=== PATIENT | female | born 1930 | race Hispanic/Latino ===

== ENCOUNTER 2017-06-02 16:43 | Inpatient (IN) | payer MEDICARE ==
[2017-06-02] MEDS ORDERED: TYLENOL PO STA (17:54)
[2017-06-02] MEDS ORDERED: NACL 0.9% 500 ML 500 ML IV ONE (17:54)
[2017-06-02] MEDS ORDERED: TYLENOL PR ONE ×3 (18:05→20:27)
[2017-06-02] MEDS ORDERED: ROCEPHIN/NS 1 GM/50 ML 1 GM/50 ML BAG IV ONE (18:06)
[2017-06-02] MEDS ORDERED: TYLENOL PO ONE (18:25)
[2017-06-02 18:53] LABS: Hematocrit 39.7 % (30.3-42.9); Hemoglobin 13.3 gm/dl (10.1-14.3); Mean Corpuscular HGB Conc 34 % (30-34); Mean Corpuscular Hemoglobin 30 pg (28-32); Mean Corpuscular Volume 91 fl (79-97); Red Blood Count 4.38 M/mm3 (3.65-5.03); Red Cell Distribution Width 14.4 % (13.2-15.2); White Blood Count 8.2 K/mm3 (4.5-11.0)
[2017-06-02 18:55] LABS: Platelet Count 188 K/mm3 (140-440)
--- NOTE | 2017-06-02 18:55 | Emergency Department Report ---
ED Altered Mental Status HPI - General Chief Complaint: Fever Stated Complaint: INFECTION Time Seen by Provider: 06/02/17 18:04 Source: family, EMS Mode of arrival: Stretcher Limitations: Language Barrier, Altered Mental Status - History of Present Illness Initial Comments: 87-year-old female with a past medical history dementia, hypothyroidism, and atrial fibrillation presents to the hospital for altered mental status and UTI. Patient has had decreased by mouth intake and depressed mental status for the last several days. She was seen at [facility] yesterday and diagnosed with a UTI and prescribed Macrobid. They were unable to fill the medication because the pharmacy was closed over the holiday weekend. Today patient was found down on the floor by her daughter and nonverbal. Patient makes eye contact, smiles, and follows commands but does not speak. This is an acute change from her baseline in which she speaks and ambulates with a walker. No fever reported at home. Patient is not on anticoagulants for Coumadin due to a fall risk but she does take an aspirin daily. No pain reported. Patient was able to stand with assistance of EMS at the scene. received 1 L normal saline prior to arrival. PMD: Dr. moore partners - Related Data Allergies Allergy/AdvReac Type Severity Reaction Status Date / Time No Known Allergies Allergy Unverified 06/02/17 17:54 ED Review of Systems ROS: Stated complaint: INFECTION Other details as noted in HPI Comment: Unobtainable due to pts medical conditions (ams/dementia) ED Past Medical Hx - Past Medical History Hx Dementia: Yes Additional medical history: hypothyroid, Afib - Surgical History Additional Surgical History: hysterectomy, R foot - Social History Smoking Status: Never Smoker Substance Use Type: None ED Physical Exam - General Limitations: Language Barrier, Altered Mental Status - Other Other exam information: General: No limitations Head exam: Atraumatic no scalp hematoma, normocephalic Eyes exam: Normal appearance ENT: Moist mucous membrane, normal oropharynx Neck exam: Normal inspection, full range of motion, no meningismus, nontender midline Respiratory exam: Clear to auscultation bilateral, no wheezes, rales, crackles Cardiovascular: Normal rate and rhythm, normal heart sounds Abdomen: Soft, nondistended, and nontender, with normal bowel sounds, no rebound, or guarding Extremity: Full range of motion normal inspection no deformity, no pain with movement of extremities. Back: Normal Inspection, full range of motion, no tenderness Neurologic: Alert, nonverbal, cranial nerves intact, equal hand weather forecaster, equal foot dorsiflexion, equal smile Psychiatric: normal affect, normal mood Skin: Warm, dry, intact ED Course Vital Signs 06/02/17 06/02/17 06/02/17 17:48 17:55 18:00 Temperature 100.1 F H Pulse Rate 96 H Respiratory 20 Rate Blood Pressure 118/53 118/53 O2 Sat by Pulse 91 93 96 Oximetry 06/02/17 06/02/17 06/02/17 18:18 18:30 19:02 Temperature Pulse Rate 100 H Respiratory Rate Blood Pressure 105/39 125/54 118/53 O2 Sat by Pulse 94 95 Oximetry 06/02/17 06/02/17 06/02/17 19:15 19:30 19:45 Temperature Pulse Rate 98 H 93 H 94 H Respiratory 32 H 28 H 25 H Rate Blood Pressure 99/52 90/40 87/41 O2 Sat by Pulse 95 96 96 Oximetry 06/02/17 06/02/17 06/02/17 20:00 20:15 20:25 Temperature 101.7 F H Pulse Rate 88 96 H Respiratory 29 H 30 H Rate Blood Pressure 90/47 82/49 O2 Sat by Pulse 98 98 Oximetry 06/02/17 06/02/17 20:30 21:15 Temperature Pulse Rate 88 Respiratory 34 H 28 H Rate Blood Pressure 91/44 O2 Sat by Pulse 96 97 Oximetry - Reevaluation(s) Reevaluation #1: 06/02/17 19:54 Systolic blood pressure in the 80s as per nurse. 500 mL normal saline bolus in progress. Additional 1 L ordered. Patient received Rocephin for presumed UTI. UA results still pending Reevaluation #2: 06/02/17 23:16 Despite 3.5 L of normal saline patient may hypotensive. consent obtained for central line. Right femoral line placed. - Central Line Placement Right Femoral Consent Obtained: written consent Time Out Performed: Yes Patient Placed on Monitor/Pulse Ox: Yes Prep: mask, gown, gloves Central Line Prep: Chlorhexidine scrub, sterile drapes applied Amount of Anesthesia Used (mls): 5 Ultrasound Used for Placement: Yes Central Line Lumen Inserted: triple Bloods Obtained for Lab: Yes Central Line Position: good blood return, sutured in place with nyl Dressing Applied: Tegaderm Patient Tolerated Procedure: well Complications: arterial puncture/cannula (pressure held, no hematoma or continued bleeding) - Lab Data Result diagrams: 06/02/17 18:11 06/02/17 18:11 Lab Results 06/02/17 06/02/17 06/02/17 Range/Units 18:11 18:11 18:11 WBC 8.2 (4.5-11.0) K/mm3 RBC 4.38 (3.65-5.03) M/mm3 Hgb 13.3 (10.1-14.3) gm/dl Hct 39.7 (30.3-42.9) % MCV 91 (79-97) fl MCH 30 (28-32) pg MCHC 34 (30-34) % RDW 14.4 (13.2-15.2) % Plt Count 188 (140-440) K/mm3 Add Manual Diff Complete Total Counted 100 Seg Neutrophils % Load Tallier Seg Neuts % (Manual) 44.0 (40.0-70.0) % Band Neutrophils % 47.0 % Lymphocytes % (Manual) 5.0 L (13.4-35.0) % Reactive Lymphs % (Man) 0 % Monocytes % (Manual) 1.0 (0.0-7.3) % Eosinophils % (Manual) 0 (0.0-4.3) % Basophils % (Manual) 0 (0.0-1.8) % Metamyelocytes % 3.0 % Myelocytes % 0 % Promyelocytes % 0 % Blast Cells % 0 % Nucleated RBC % Not Reportable Seg Neutrophils # Man 3.6 (1.8-7.7) K/mm3 Band Neutrophils # 3.9 K/mm3 Lymphocytes # (Manual) 0.4 L (1.2-5.4) K/mm3 Abs React Lymphs (Man) 0.0 K/mm3 Monocytes # (Manual) 0.1 (0.0-0.8) K/mm3 Eosinophils # (Manual) 0.0 (0.0-0.4) K/mm3 Basophils # (Manual) 0.0 (0.0-0.1) K/mm3 Metamyelocytes # 0.2 K/mm3 Myelocytes # 0.0 K/mm3 Promyelocytes # 0.0 K/mm3 Blast Cells # 0.0 K/mm3 WBC Morphology Not Reportable Hypersegmented Neuts Not Reportable Hyposegmented Neuts Not Reportable Hypogranular Neuts Not Reportable Smudge Cells Not Reportable Toxic Granulation Not Reportable Toxic Vacuolation Not Reportable Dohle Bodies Not Reportable Pelger-Huet Anomaly Not Reportable Nate Rods Not Reportable Platelet Estimate Appears normal Clumped Platelets Not Reportable Plt Clumps, EDTA Not Reportable Large Platelets Not Reportable Giant Platelets Not Reportable Platelet Satelliting Not Reportable Plt Morphology Comment Not Reportable RBC Morphology Not Reportable Dimorphic RBCs Not Reportable Polychromasia Not Reportable Hypochromasia Not Reportable Poikilocytosis Not Reportable Anisocytosis Not Reportable Microcytosis Not Reportable Macrocytosis Not Reportable Spherocytes Not Reportable Pappenheimer Bodies Not Reportable Sickle Cells Not Reportable Target Cells Not Reportable Tear Drop Cells Not Reportable Ovalocytes Few Helmet Cells Not Reportable Vazquez-[place] Bodies Not Reportable [place] Rings Not Reportable [place] Cells Not Reportable Bite Cells Not Reportable Crenated Cell Not Reportable Elliptocytes Not Reportable Acanthocytes (Spur) Not Reportable Rouleaux Not Reportable Hemoglobin C Crystals Not Reportable Schistocytes Not Reportable Malaria parasites Not Reportable Néstor Bodies Not Reportable Hem Pathologist Commnt No PT 16.8 H (12.2-14.9) Sec. INR 1.30 H (0.87-1.13) APTT 30.8 (24.2-36.6) Sec. VBG pH (7.320-7.420) Sodium 137 (137-145) mmol/L Potassium 4.0 (3.6-5.0) mmol/L Chloride 95.7 L (98-107) mmol/L Carbon Dioxide 19 L (22-30) mmol/L Anion Gap 26 mmol/L BUN 28 H (7-17) mg/dL Creatinine 1.6 H (0.7-1.2) mg/dL Estimated GFR 30 ml/min BUN/Creatinine Ratio 18 % Glucose 113 H (65-100) mg/dL Lactic Acid (0.7-2.0) mmol/L Calcium 9.2 (8.4-10.2) mg/dL Total Bilirubin 1.40 H (0.1-1.2) mg/dL AST 25 (5-40) units/L ALT 16 (7-56) units/L Alkaline Phosphatase 159 H (35-129) units/L Ammonia (25-60) umol/L Total Creatine Kinase (30-135) units/L CK-MB (CK-2) (0.0-4.0) ng/mL CK-MB (CK-2) Rel Index (0-4) Total Protein 6.1 L (6.3-8.2) g/dL Albumin 3.5 L (3.9-5) g/dL Albumin/Globulin Ratio 1.3 % TSH (0.270-4.200) mlU/mL Free T4 (0.76-1.46) ng/dL Urine Color (Yellow) Urine Turbidity (Clear) Urine pH (5.0-7.0) Ur Specific Reform (1.003-1.030) Urine Protein (Negative) mg/dL Urine Glucose (UA) (Negative) mg/dL Urine Ketones (Negative) mg/dL Urine Blood (Negative) Urine Nitrite (Negative) Urine Bilirubin (Negative) Urine Urobilinogen (<2.0) mg/dL Ur Leukocyte Esterase (Negative) Urine WBC (Auto) (0.0-6.0) /HPF Urine RBC (Auto) (0.0-6.0) /HPF U Epithel Cells (Auto) (0-13.0) /HPF Urine Bacteria (Auto) (Negative) /HPF Urine WBC Clumps /HPF Calcium Oxalate Crystal Urine Mucus /HPF 06/02/17 06/02/17 06/02/17 Range/Units 18:11 18:11 18:11 WBC (4.5-11.0) K/mm3 RBC (3.65-5.03) M/mm3 Hgb (10.1-14.3) gm/dl Hct (30.3-42.9) % MCV (79-97) fl MCH (28-32) pg MCHC (30-34) % RDW (13.2-15.2) % Plt Count (140-440) K/mm3 Add Manual Diff Total Counted Seg Neutrophils % Seg Neuts % (Manual) (40.0-70.0) % Band Neutrophils % % Lymphocytes % (Manual) (13.4-35.0) % Reactive Lymphs % (Man) % Monocytes % (Manual) (0.0-7.3) % Eosinophils % (Manual) (0.0-4.3) % Basophils % (Manual) (0.0-1.8) % Metamyelocytes % % Myelocytes % % Promyelocytes % % Blast Cells % % Nucleated RBC % Seg Neutrophils # Man (1.8-7.7) K/mm3 Band Neutrophils # K/mm3 Lymphocytes # (Manual) (1.2-5.4) K/mm3 Abs React Lymphs (Man) K/mm3 Monocytes # (Manual) (0.0-0.8) K/mm3 Eosinophils # (Manual) (0.0-0.4) K/mm3 Basophils # (Manual) (0.0-0.1) K/mm3 Metamyelocytes # K/mm3 Myelocytes # K/mm3 Promyelocytes # K/mm3 Blast Cells # K/mm3 WBC Morphology Hypersegmented Neuts Hyposegmented Neuts Hypogranular Neuts Smudge Cells Toxic Granulation Toxic Vacuolation Dohle Bodies Pelger-Huet Anomaly Nate Rods Platelet Estimate Clumped Platelets Plt Clumps, EDTA Large Platelets Giant Platelets Platelet Satelliting Plt Morphology Comment RBC Morphology Dimorphic RBCs Polychromasia Hypochromasia Poikilocytosis Anisocytosis Microcytosis Macrocytosis Spherocytes Pappenheimer Bodies Sickle Cells Target Cells Tear Drop Cells Ovalocytes Helmet Cells Vazquez-[place] Bodies [place] Rings [place] Cells Bite Cells Crenated Cell Elliptocytes Acanthocytes (Spur) Rouleaux Hemoglobin C Crystals Schistocytes Malaria parasites Néstor Bodies Hem Pathologist Commnt PT (12.2-14.9) Sec. INR (0.87-1.13) APTT (24.2-36.6) Sec. VBG pH 7.331 (7.320-7.420) Sodium (137-145) mmol/L Potassium (3.6-5.0) mmol/L Chloride (98-107) mmol/L Carbon Dioxide (22-30) mmol/L Anion Gap mmol/L BUN (7-17) mg/dL Creatinine (0.7-1.2) mg/dL Estimated GFR ml/min BUN/Creatinine Ratio % Glucose (65-100) mg/dL Lactic Acid 5.70 H* (0.7-2.0) mmol/L Calcium (8.4-10.2) mg/dL Total Bilirubin (0.1-1.2) mg/dL AST (5-40) units/L ALT (7-56) units/L Alkaline Phosphatase (35-129) units/L Ammonia < 10.0 L (25-60) umol/L Total Creatine Kinase (30-135) units/L CK-MB (CK-2) (0.0-4.0) ng/mL CK-MB (CK-2) Rel Index (0-4) Total Protein (6.3-8.2) g/dL Albumin (3.9-5) g/dL Albumin/Globulin Ratio % TSH (0.270-4.200) mlU/mL Free T4 (0.76-1.46) ng/dL Urine Color (Yellow) Urine Turbidity (Clear) Urine pH (5.0-7.0) Ur Specific Reform (1.003-1.030) Urine Protein (Negative) mg/dL Urine Glucose (UA) (Negative) mg/dL Urine Ketones (Negative) mg/dL Urine Blood (Negative) Urine Nitrite (Negative) Urine Bilirubin (Negative) Urine Urobilinogen (<2.0) mg/dL Ur Leukocyte Esterase (Negative) Urine WBC (Auto) (0.0-6.0) /HPF Urine RBC (Auto) (0.0-6.0) /HPF U Epithel Cells (Auto) (0-13.0) /HPF Urine Bacteria (Auto) (Negative) /HPF Urine WBC Clumps /HPF Calcium Oxalate Crystal Urine Mucus /HPF 06/02/17 06/02/17 06/02/17 Range/Units 18:11 18:11 19:19 WBC (4.5-11.0) K/mm3 RBC (3.65-5.03) M/mm3 Hgb (10.1-14.3) gm/dl Hct (30.3-42.9) % MCV (79-97) fl MCH (28-32) pg MCHC (30-34) % RDW (13.2-15.2) % Plt Count (140-440) K/mm3 Add Manual Diff Total Counted Seg Neutrophils % Seg Neuts % (Manual) (40.0-70.0) % Band Neutrophils % % Lymphocytes % (Manual) (13.4-35.0) % Reactive Lymphs % (Man) % Monocytes % (Manual) (0.0-7.3) % Eosinophils % (Manual) (0.0-4.3) % Basophils % (Manual) (0.0-1.8) % Metamyelocytes % % Myelocytes % % Promyelocytes % % Blast Cells % % Nucleated RBC % Seg Neutrophils # Man (1.8-7.7) K/mm3 Band Neutrophils # K/mm3 Lymphocytes # (Manual) (1.2-5.4) K/mm3 Abs React Lymphs (Man) K/mm3 Monocytes # (Manual) (0.0-0.8) K/mm3 Eosinophils # (Manual) (0.0-0.4) K/mm3 Basophils # (Manual) (0.0-0.1) K/mm3 Metamyelocytes # K/mm3 Myelocytes # K/mm3 Promyelocytes # K/mm3 Blast Cells # K/mm3 WBC Morphology Hypersegmented Neuts Hyposegmented Neuts Hypogranular Neuts Smudge Cells Toxic Granulation Toxic Vacuolation Dohle Bodies Pelger-Huet Anomaly Nate Rods Platelet Estimate Clumped Platelets Plt Clumps, EDTA Large Platelets Giant Platelets Platelet Satelliting Plt Morphology Comment RBC Morphology Dimorphic RBCs Polychromasia Hypochromasia Poikilocytosis Anisocytosis Microcytosis Macrocytosis Spherocytes Pappenheimer Bodies Sickle Cells Target Cells Tear Drop Cells Ovalocytes Helmet Cells Vazquez-[place] Bodies [place] Rings Maira Cells Bite Cells Crenated Cell Elliptocytes Acanthocytes (Spur) Rouleaux Hemoglobin C Crystals Schistocytes Malaria parasites Néstor Bodies Hem Pathologist Commnt PT (12.2-14.9) Sec. INR (0.87-1.13) APTT (24.2-36.6) Sec. VBG pH (7.320-7.420) Sodium (137-145) mmol/L Potassium (3.6-5.0) mmol/L Chloride (98-107) mmol/L Carbon Dioxide (22-30) mmol/L Anion Gap mmol/L BUN (7-17) mg/dL Creatinine (0.7-1.2) mg/dL Estimated GFR ml/min BUN/Creatinine Ratio % Glucose (65-100) mg/dL Lactic Acid (0.7-2.0) mmol/L Calcium (8.4-10.2) mg/dL Total Bilirubin (0.1-1.2) mg/dL AST (5-40) units/L ALT (7-56) units/L Alkaline Phosphatase (35-129) units/L Ammonia (25-60) umol/L Total Creatine Kinase 463 H (30-135) units/L CK-MB (CK-2) 7.0 H (0.0-4.0) ng/mL CK-MB (CK-2) Rel Index 1.5 (0-4) Total Protein (6.3-8.2) g/dL Albumin (3.9-5) g/dL Albumin/Globulin Ratio % TSH 0.931 (0.270-4.200) mlU/mL Free T4 1.30 (0.76-1.46) ng/dL Urine Color Yellow (Yellow) Urine Turbidity Clear (Clear) Urine pH 5.0 (5.0-7.0) Ur Specific Reform 1.014 (1.003-1.030) Urine Protein 30 mg/dl (Negative) mg/dL Urine Glucose (UA) Neg (Negative) mg/dL Urine Ketones Neg (Negative) mg/dL Urine Blood Lg (Negative) Urine Nitrite Pos (Negative) Urine Bilirubin Neg (Negative) Urine Urobilinogen < 2.0 (<2.0) mg/dL Ur Leukocyte Esterase Lg (Negative) Urine WBC (Auto) > 182.0 H (0.0-6.0) /HPF Urine RBC (Auto) 27.0 (0.0-6.0) /HPF U Epithel Cells (Auto) 6.0 (0-13.0) /HPF Urine Bacteria (Auto) 3+ (Negative) /HPF Urine WBC Clumps 3+ /HPF Calcium Oxalate Crystal Few Urine Mucus 3+ /HPF 06/02/17 Range/Units 20:44 WBC (4.5-11.0) K/mm3 RBC (3.65-5.03) M/mm3 Hgb (10.1-14.3) gm/dl Hct (30.3-42.9) % MCV (79-97) fl MCH (28-32) pg MCHC (30-34) % RDW (13.2-15.2) % Plt Count (140-440) K/mm3 Add Manual Diff Total Counted Seg Neutrophils % Seg Neuts % (Manual) (40.0-70.0) % Band Neutrophils % % Lymphocytes % (Manual) (13.4-35.0) % Reactive Lymphs % (Man) % Monocytes % (Manual) (0.0-7.3) % Eosinophils % (Manual) (0.0-4.3) % Basophils % (Manual) (0.0-1.8) % Metamyelocytes % % Myelocytes % % Promyelocytes % % Blast Cells % % Nucleated RBC % Seg Neutrophils # Man (1.8-7.7) K/mm3 Band Neutrophils # K/mm3 Lymphocytes # (Manual) (1.2-5.4) K/mm3 Abs React Lymphs (Man) K/mm3 Monocytes # (Manual) (0.0-0.8) K/mm3 Eosinophils # (Manual) (0.0-0.4) K/mm3 Basophils # (Manual) (0.0-0.1) K/mm3 Metamyelocytes # K/mm3 Myelocytes # K/mm3 Promyelocytes # K/mm3 Blast Cells # K/mm3 WBC Morphology Hypersegmented Neuts Hyposegmented Neuts Hypogranular Neuts Smudge Cells Toxic Granulation Toxic Vacuolation Dohle Bodies Pelger-Huet Anomaly Nate Rods Platelet Estimate Clumped Platelets Plt Clumps, EDTA Large Platelets Giant Platelets Platelet Satelliting Plt Morphology Comment RBC Morphology Dimorphic RBCs Polychromasia Hypochromasia Poikilocytosis Anisocytosis Microcytosis Macrocytosis Spherocytes Pappenheimer Bodies Sickle Cells Target Cells Tear Drop Cells Ovalocytes Helmet Cells Vazquez-[place] Bodies [place] Rings Maira Cells Bite Cells Crenated Cell Elliptocytes Acanthocytes (Spur) Rouleaux Hemoglobin C Crystals Schistocytes Malaria parasites Néstor Bodies Hem Pathologist Commnt PT (12.2-14.9) Sec. INR (0.87-1.13) APTT (24.2-36.6) Sec. VBG pH (7.320-7.420) Sodium (137-145) mmol/L Potassium (3.6-5.0) mmol/L Chloride (98-107) mmol/L Carbon Dioxide (22-30) mmol/L Anion Gap mmol/L BUN (7-17) mg/dL Creatinine (0.7-1.2) mg/dL Estimated GFR ml/min BUN/Creatinine Ratio % Glucose (65-100) mg/dL Lactic Acid 5.10 H* (0.7-2.0) mmol/L Calcium (8.4-10.2) mg/dL Total Bilirubin (0.1-1.2) mg/dL AST (5-40) units/L ALT (7-56) units/L Alkaline Phosphatase (35-129) units/L Ammonia (25-60) umol/L Total Creatine Kinase (30-135) units/L CK-MB (CK-2) (0.0-4.0) ng/mL CK-MB (CK-2) Rel Index (0-4) Total Protein (6.3-8.2) g/dL Albumin (3.9-5) g/dL Albumin/Globulin Ratio % TSH (0.270-4.200) mlU/mL Free T4 (0.76-1.46) ng/dL Urine Color (Yellow) Urine Turbidity (Clear) Urine pH (5.0-7.0) Ur Specific Reform (1.003-1.030) Urine Protein (Negative) mg/dL Urine Glucose (UA) (Negative) mg/dL Urine Ketones (Negative) mg/dL Urine Blood (Negative) Urine Nitrite (Negative) Urine Bilirubin (Negative) Urine Urobilinogen (<2.0) mg/dL Ur Leukocyte Esterase (Negative) Urine WBC (Auto) (0.0-6.0) /HPF Urine RBC (Auto) (0.0-6.0) /HPF U Epithel Cells (Auto) (0-13.0) /HPF Urine Bacteria (Auto) (Negative) /HPF Urine WBC Clumps /HPF Calcium Oxalate Crystal Urine Mucus /HPF - Radiology Data Radiology results: report reviewed, image reviewed read by radiologist ct head: naf ct cervical spine: degenerative disc changes c4-c7 no fracture read by me: cxr portable: Poor inspiration, no acute findings 1 view pelvis x-ray: No acute findings - Medical Decision Making Patient present admission to the ICU for septic shock related to UTI. Central line placed on Levophed initiated in the ED. Patient received Rocephin and Levaquin. Cultures pending - Differential Diagnosis uti, sepsis, ich, stroke, fracture Critical Care Time: No Critical care attestation.: If time is entered above; I have spent that time in minutes in the direct care of this critically ill patient, excluding procedure time. ED Disposition Clinical Impression: UTI (urinary tract infection), Altered mental status, Dementia, Renal insufficiency, Septic shock, ARF (acute renal failure), Lactic acidosis, Encephalopathy Disposition: OP ADMIT IP TO THIS HOSP Is pt being admited?: Yes Condition: Stable Time of Disposition: 20:22 (Dr Mehta (pt to be seen by Dr Briceño))
[2017-06-02] MEDS ORDERED: cefTRIAXone 1 GM in NACL 0.9% 20 ML IV ONE (19:00)
[2017-06-02 19:05] LABS: INR 1.3 (0.87-1.13)
[2017-06-02 19:06] LABS: Partial Thromboplastin Time 30.8 Sec. (24.2-36.6)
[2017-06-02 19:11] LABS: Albumin 3.5 g/dL (3.9-5); Albumin/Globulin Ratio 1.3 %; Bilirubin,Total 1.4 mg/dL (0.1-1.2); Calcium 9.2 mg/dL (8.4-10.2); Chloride 95.7 mmol/L (98-107); Total Protein 6.1 g/dL (6.3-8.2)
--- NOTE | 2017-06-02 19:16 | Cat Scan Report ---
FINAL REPORT EXAM: CT HEAD/BRAIN WO CON HISTORY: AMS TECHNIQUE: Standard unenhanced CT of the head at 5.0 millimeter axial increments. PRIORS: None. FINDINGS: The ventricular system is normal in size and configuration. There is moderate cerebral and central atrophy noted. There is no evidence for mass lesion, mass effect, midline shift, acute intracranial hemorrhage, or acute ischemia/ infarction. No evidence for acute skull fracture is seen. No abnormality in the overlying scalp soft tissues is seen. Visualized paranasal sinuses are clear. IMPRESSION: No acute intracranial process noted. Central and cerebral atrophy noted.
--- NOTE | 2017-06-02 19:23 | Cat Scan Report ---
FINAL REPORT EXAM: CT CERVICAL SPINE WO CON HISTORY: AMS, found on floor TECHNIQUE: Standard CT cervical spine obtained at 2.5 millimeter axial increments. Coronal and sagittal reconstruction was also performed. PRIORS: None. FINDINGS: The vertebral bodies are intact. There is no evidence for acute fracture. There is no evidence for paravertebral soft tissue swelling. Alignment is maintained. There is degenerative disc narrowing at C4 through C7 with spurring anteriorly and posteriorly at those levels. IMPRESSION: No acute abnormality of the cervical spine. Degenerative disc changes from C4 through C7.
[2017-06-02 19:50] LABS: Bacteria,Urine 3+ /HPF (Negative); Bilirubin,Urine NEG (Negative); Blood,Urine LG (Negative); Ketones,Urine NEG (Negative); Leukocyte Esterase,Urine LG (Negative); Mucus,Urine 3+ /HPF; Nitrite,Urine POS (Negative); Urobilinogen,Urine < 2.0 mg/dL (<2.0)
[2017-06-02 19:53] LABS: WBC,Urine > 182.0 /HPF (0.0-6.0)
[2017-06-02] MEDS ORDERED: NACL 0.9% 1000 ML 1,000 ML IV ONE ×2 (19:53→20:24)
--- NOTE | 2017-06-02 19:55 | XRay Report ---
FINAL REPORT EXAM: XR PELVIS 1-2V HISTORY: fall with pelvic pain TECHNIQUE: AP view of the pelvis PRIORS: None FINDINGS: No evidence for acute fracture or dislocation is seen. There is moderate medial joint compartment narrowing in both hip joints.. Sacroiliac joints are normal. The soft tissues are unremarkable. Bony mineralization is mildly osteopenic. IMPRESSION: No acute soft tissue or bony abnormality noted in pelvis.
[2017-06-02 20:10] LABS: Basophils % (Manual) 0 % (0.0-1.8); Blastocytes % (Manual) 0 %; Diff Status Complete; Eosinophils % (Manual) 0 % (0.0-4.3); Ovalocytes Few
[2017-06-02] MEDS ORDERED: LEVAQUIN 750MG/150ML 750 MG/150 ML BAG IV ONE (20:44)
[2017-06-02] MEDS ORDERED: NACL 0.9% 1000 ML IV ONE (21:29)
[2017-06-02] MEDS ORDERED: VANCOMYCIN VIAL IV ONE (21:29)
[2017-06-02] MEDS ORDERED: TYLENOL PO PRN (21:29)
[2017-06-02] MEDS ORDERED: PROVENTIL IH PRN (21:29)
[2017-06-02] MEDS ORDERED: ZOFRAN IV PRN (21:29)
--- NOTE | 2017-06-02 21:34 | XRay Report ---
FINAL REPORT EXAM: XR CHEST 1V AP HISTORY: possible Sepsis TECHNIQUE: AP portable view of the chest PRIORS: None. FINDINGS: Lines, tubes, and devices: N/A Lungs and pleura: Trachea is normal in position. Lungs are clear of infiltrate, pleural effusion, vascular congestion, or pneumothorax. Cardiomediastinal silhouette: Heart is enlarged with a left ventricular configuration. Other: Bony structures are osteopenic. IMPRESSION: No acute cardiopulmonary process seen. Cardiomegaly.
--- NOTE | 2017-06-02 21:48 | History and Physical Report ---
History of Present Illness Chief complaint: Fever, Confusion History of present illness: 87 YO Female with Atrial Fib, Debility(Fall Risk), Hypothyroidism, Dementia presents to ED for evaluation. Pt unable to provide history due to confusion, and lethargy. Pt daughter at bedside and provides history. As per daughter, pt has experienced confusion and fever over the past 4 days with worsening symptoms over the past 2 days. Pt seen at [facility] on day prior to admission to [facility], and was found to have UTI and was discharged with oral antibiotics. They were unable to fill the medication because the pharmacy was closed over the holiday weekend. Pt weakness and confusion has gotten progressively worse overnight. The patient was found down on the floor by her daughter today. No signs of trauma. EMS notified and patient transported to [facility] for evaluation. Pt seen and evaluated in ED and found to have UTI complicated by Septic Shock. Pt systolic blood pressure in in the 70's after resuscitation with 5 liters of IV fluid. Pt confused but is able to protect her airway. No reports of CP, Palpitations, NVD, Syncope, BRBPR, Trauma, Vertigo, unintentional weight loss, night sweats, leg swelling, calf pain, prolonged immobililty/travel, individual/family history of DVT/PE, hemoptysis, productive cough, or recent ill contacts. Past History Past Medical History: atrial fib, hypothyroidism, other (Dementia) Past Surgical History: No surgical history, Other (reviewed) Social history: , lives with family. denies: smoking, alcohol abuse, prescription drug abuse Family history: no significant family history, other (reviewed) Medications and Allergies Allergies Allergy/AdvReac Type Severity Reaction Status Date / Time No Known Allergies Allergy Unverified 06/02/17 17:54 Active Meds: Active Medications Acetaminophen (Tylenol) 650 mg PO Q4H PRN PRN Reason: Pain MILD(1-3)/Fever >100.5/JOHNSON Albuterol (Proventil) 2.5 mg IH Q4HRT PRN PRN Reason: Shortness Of Breath Levofloxacin/Dextrose (Levaquin 750mg/150ml) 750 mg in 150 mls @ 100 mls/hr IV ONCE ONE Stop: 06/02/17 22:13 Last Admin: 06/02/17 20:58 Dose: 100 mls/hr Ceftriaxone Sodium 2 gm/ (Sodium Chloride) 20 mls @ 20 mls/10 min IV Q24HR [facility] Vancomycin HCl 1,500 mg/ (Sodium Chloride) 515 mls @ 333.333 mls/hr IV ONCE.ED ONE Stop: 06/02/17 23:32 Ondansetron HCl (Zofran) 4 mg IV Q8H PRN PRN Reason: N/V unrelieved by Reglan Vancomycin HCl (Vancomycin Pharmacy To Dose) 1 each IV PKCONSULT GOGO PRN Reason: Protocol Review of Systems ROS unobtainable: due to mental status Exam - Constitutional Vitals: Temp Pulse Resp BP Pulse Ox 101.7 F H 88 28 H 91/44 97 06/02/17 20:25 06/02/17 20:30 06/02/17 21:15 06/02/17 20:30 06/02/17 21:15 General appearance: Present: severe distress - EENT Eyes: Present: PERRL ENT: hearing intact, clear oral mucosa - Neck Neck: Present: supple - Respiratory Respiratory effort: normal, other (tachypnea) Respiratory: bilateral: diminished - Cardiovascular Rhythm: regular (tachycardia) Heart Sounds: Absent: systolic murmur, diastolic murmur - Extremities Extremities: pulses symmetrical, No edema Peripheral Pulses: abnormal (Capillary Refill: 4 seconds) - Abdominal General gastrointestinal: Present: soft, non-tender, non-distended, normal bowel sounds Female genitourinary: Present: normal - Integumentary Integumentary: Present: clear, dry, pale, decreased turgor - Musculoskeletal Musculoskeletal: generalized weakness - Psychiatric Psychiatric: no intact judgment & insight, no memory intact - Neurologic Neurologic: CNII-XII intact, no gait normal Results - Labs CBC & Chem 7: 06/02/17 18:11 06/02/17 18:11 Labs: Abnormal lab results 06/02/17 06/02/17 06/02/17 Range/Units 18:11 18:11 18:11 Lymphocytes % (Manual) 5.0 L (13.4-35.0) % Lymphocytes # (Manual) 0.4 L (1.2-5.4) K/mm3 PT 16.8 H (12.2-14.9) Sec. INR 1.30 H (0.87-1.13) Chloride 95.7 L (98-107) mmol/L Carbon Dioxide 19 L (22-30) mmol/L BUN 28 H (7-17) mg/dL Creatinine 1.6 H (0.7-1.2) mg/dL Glucose 113 H (65-100) mg/dL Lactic Acid (0.7-2.0) mmol/L Total Bilirubin 1.40 H (0.1-1.2) mg/dL Alkaline Phosphatase 159 H (35-129) units/L Ammonia (25-60) umol/L Total Creatine Kinase (30-135) units/L CK-MB (CK-2) (0.0-4.0) ng/mL Total Protein 6.1 L (6.3-8.2) g/dL Albumin 3.5 L (3.9-5) g/dL Urine WBC (Auto) (0.0-6.0) /HPF 06/02/17 06/02/17 06/02/17 Range/Units 18:11 18:11 18:11 Lymphocytes % (Manual) (13.4-35.0) % Lymphocytes # (Manual) (1.2-5.4) K/mm3 PT (12.2-14.9) Sec. INR (0.87-1.13) Chloride (98-107) mmol/L Carbon Dioxide (22-30) mmol/L BUN (7-17) mg/dL Creatinine (0.7-1.2) mg/dL Glucose (65-100) mg/dL Lactic Acid 5.70 H* (0.7-2.0) mmol/L Total Bilirubin (0.1-1.2) mg/dL Alkaline Phosphatase (35-129) units/L Ammonia < 10.0 L (25-60) umol/L Total Creatine Kinase 463 H (30-135) units/L CK-MB (CK-2) 7.0 H (0.0-4.0) ng/mL Total Protein (6.3-8.2) g/dL Albumin (3.9-5) g/dL Urine WBC (Auto) (0.0-6.0) /HPF 06/02/17 06/02/17 Range/Units 19:19 20:44 Lymphocytes % (Manual) (13.4-35.0) % Lymphocytes # (Manual) (1.2-5.4) K/mm3 PT (12.2-14.9) Sec. INR (0.87-1.13) Chloride (98-107) mmol/L Carbon Dioxide (22-30) mmol/L BUN (7-17) mg/dL Creatinine (0.7-1.2) mg/dL Glucose (65-100) mg/dL Lactic Acid 5.10 H* (0.7-2.0) mmol/L Total Bilirubin (0.1-1.2) mg/dL Alkaline Phosphatase (35-129) units/L Ammonia (25-60) umol/L Total Creatine Kinase (30-135) units/L CK-MB (CK-2) (0.0-4.0) ng/mL Total Protein (6.3-8.2) g/dL Albumin (3.9-5) g/dL Urine WBC (Auto) > 182.0 H (0.0-6.0) /HPF Assessment and Plan - Patient Problems (1) Sepsis Current Visit: Yes Status: Acute Qualifiers: Sepsis type: sepsis due to unspecified organism Qualified Code(s): A41.9 - Sepsis, unspecified organism Plan to address problem: Sepsis Protocol: IVF, IV abx, serial lactic acid level, urinalysis and culture, blood cultured, IV pressor support as clinically indicated to maintain MAP above or equal to 60, monitor uop q shift, The high probability of a clinically significant, sudden or life threatening deterioration of the [Cardiac, renal, neurologic] system(s) required my full and direct attention, intervention and personal management. The aggregate critical care time was [65] minutes. This time is in addition to time spent performing reported procedures but includes the following: [x] Data Review and interpretation [x] Patient assessment and monitoring of vital signs [x] Documentation [x] Medication orders and management (2) ARF (acute renal failure) Current Visit: Yes Status: Acute Plan to address problem: IVF resuscitation therapy, monitor uop q shift, urine electrolytes, treat sepsis. (3) Encephalopathy Current Visit: Yes Status: Acute Plan to address problem: Toxic Encephalopathy: Treat UTI and Sepsis, IVF resuscitation therapy, Neuro checks, aspiration precautions. (4) Lactic acidosis Current Visit: Yes Status: Acute Plan to address problem: serial lactic acid levels, treat sepsis, IVF resuscitation, supportive care. (5) UTI (urinary tract infection) Current Visit: Yes Status: Acute Plan to address problem: IV abx, IVF resuscitation, (6) DVT prophylaxis Current Visit: Yes Status: Acute
[2017-06-02] MEDS ORDERED: VANCOMYCIN 1,500 MG in NACL 0.9% 500 ML 500 ML IV ONE (22:00)
[2017-06-02] MEDS ORDERED: VANCOMYCIN PHARMACY TO DOSE IV SCH (22:00)
[2017-06-02] MEDS ORDERED: LEVOPHED DRIP 4 MG/NS 250 ML 4 MG/250 ML BAG IV ONE (23:15)
[2017-06-02] MEDS: LEVOPHED DRIP 4 MG/NS 250 ML 4 MG/250 ML BAG IV SCH (23:20)
[2017-06-02] MEDS ORDERED: LEVOPHED 8 MG in NACL 0.9% 250ML 242 ML IV SCH (23:45)
--- NOTE | 2017-06-03 02:32 | XRay Report ---
FINAL REPORT EXAM: XR CHEST 1V AP HISTORY: dyspnea TECHNIQUE: An AP view of the chest was obtained and compared to the study of 06/02/2017. FINDINGS: The heart is mildly enlarged. The lungs are not congested. There are no localized infiltrates or effusions. The skeletal structures do not show any acute changes. IMPRESSION: No active chest disease.
[2017-06-03] MEDS: LEVOPHED DRIP 4 MG/NS 250 ML 4 MG/250 ML BAG IV SCH ×3 (03:06→14:30)
[2017-06-03 08:30] LABS: Hematocrit 34.7 % (30.3-42.9); Hemoglobin 11.2 gm/dl (10.1-14.3); Mean Corpuscular HGB Conc 32 % (30-34); Mean Corpuscular Hemoglobin 29 pg (28-32); Mean Corpuscular Volume 92 fl (79-97); Platelet Count 176 K/mm3 (140-440); Red Cell Distribution Width 14.8 % (13.2-15.2)
[2017-06-03 08:35] LABS: White Blood Count 39.2 K/mm3 (4.5-11.0)
[2017-06-03 08:44] LABS: Albumin 2.6 g/dL (3.9-5); Albumin/Globulin Ratio 0.9 %; Bilirubin,Total 0.5 mg/dL (0.1-1.2); Calcium 7.8 mg/dL (8.4-10.2); Chloride 106.6 mmol/L (98-107); Potassium 4.2 mmol/L (3.6-5.0); Total Protein 5.4 g/dL (6.3-8.2)
--- NOTE | 2017-06-03 09:15 | Progress Note ---
Assessment and Plan Assessment and plan: --Septic shock; sepsis secondary to UTI IV fluids, pressors, IV antibiotics, supportive care --Sepsis secondary to urinary tract infection; continue empiric antibiotics Follow cultures, ID evaluation --Significant metabolic encephalopathy; multifactorial, advanced age, septic shock, lactic and with embolic acidosis, and UTI, Closely monitor and supportive care --Lactic acidosis; and metabolic acidosis , dehydration supportive care --Acute kidney injury with metabolic acidosis; IV hydration, replacement therapy , closely monitor input output and renal function, nephrology evaluation, renal ultrasound as needed --Obesity; stable --Moderate to severe protein calorie malnutrition; nutrition supplements and supportive care --DVT prophylaxis; Lovenox SCDs --DO NOT RESUSCITATE status Closely monitor the patient and adjust the management as needed Very poor prognosis, plan of care discussed with the patient's nurse Follow consults and recommendations The high probability of a clinically significant, sudden or life threatening deterioration of the [pulmonary,CV, renal] system(s) required my full and direct attention, intervention and personal management. The aggregate critical care time was [31 ] minutes. This time is in addition to time spent performing reported procedures but includes the following: [x] Data Review and interpretation [x] Patient assessment and monitoring of vital signs [x] Documentation, counseling [x] Medication orders and management History Interval history: Patient Seen and examined in the ER waiting ICU assignment Medical records reviewed Admitted with septic shock, on Levophed Patient is minimally communicative, in mild distress Vital signs reviewed Hospitalist Physical - Constitutional Vitals: Temp Pulse Resp BP Pulse Ox 99.7 F H 80 18 111/66 95 06/03/17 05:30 06/03/17 08:31 06/03/17 08:31 06/03/17 08:31 06/03/17 08:31 General appearance: Present: mild distress, obese - EENT Eyes: Present: PERRL, EOM intact - Neck Neck: Present: supple, normal ROM - Respiratory Respiratory effort: normal Respiratory: bilateral: diminished, rhonchi, negative: rales, wheezing - Cardiovascular Rhythm: regular Heart Sounds: Present: S1 & S2 - Extremities Extremities: no ischemia Extremity abnormal: edema - Abdominal General gastrointestinal: soft, non-tender, non-distended, normal bowel sounds - Integumentary Integumentary: Present: clear, warm - Psychiatric Psychiatric: other (minimally communicative) - Neurologic Neurologic: other (minimally communicative) Results - Labs CBC & Chem 7: 06/03/17 08:08 06/03/17 08:08 Labs: Laboratory Last Values WBC 39.2 K/mm3 (4.5-11.0) H 06/03/17 08:08 RBC 3.80 M/mm3 (3.65-5.03) 06/03/17 08:08 Hgb 11.2 gm/dl (10.1-14.3) 06/03/17 08:08 Hct 34.7 % (30.3-42.9) 06/03/17 08:08 MCV 92 fl (79-97) 06/03/17 08:08 MCH 29 pg (28-32) 06/03/17 08:08 MCHC 32 % (30-34) 06/03/17 08:08 RDW 14.8 % (13.2-15.2) 06/03/17 08:08 Plt Count 176 K/mm3 (140-440) 06/03/17 08:08 Add Manual Diff Complete 06/02/17 18:11 Total Counted 100 06/02/17 18:11 Seg Neutrophils % Ski Lift Mechanic 06/03/17 08:08 Seg Neuts % (Manual) 44.0 % (40.0-70.0) 06/02/17 18:11 Band Neutrophils % 47.0 % 06/02/17 18:11 Lymphocytes % (Manual) 5.0 % (13.4-35.0) L 06/02/17 18:11 Reactive Lymphs % (Man) 0 % 06/02/17 18:11 Monocytes % (Manual) 1.0 % (0.0-7.3) 06/02/17 18:11 Eosinophils % (Manual) 0 % (0.0-4.3) 06/02/17 18:11 Basophils % (Manual) 0 % (0.0-1.8) 06/02/17 18:11 Metamyelocytes % 3.0 % 06/02/17 18:11 Myelocytes % 0 % 06/02/17 18:11 Promyelocytes % 0 % 06/02/17 18:11 Blast Cells % 0 % 06/02/17 18:11 Nucleated RBC % Not Reportable 06/02/17 18:11 Seg Neutrophils # Man 3.6 K/mm3 (1.8-7.7) 06/02/17 18:11 Band Neutrophils # 3.9 K/mm3 06/02/17 18:11 Lymphocytes # (Manual) 0.4 K/mm3 (1.2-5.4) L 06/02/17 18:11 Abs React Lymphs (Man) 0.0 K/mm3 06/02/17 18:11 Monocytes # (Manual) 0.1 K/mm3 (0.0-0.8) 06/02/17 18:11 Eosinophils # (Manual) 0.0 K/mm3 (0.0-0.4) 06/02/17 18:11 Basophils # (Manual) 0.0 K/mm3 (0.0-0.1) 06/02/17 18:11 Metamyelocytes # 0.2 K/mm3 06/02/17 18:11 Myelocytes # 0.0 K/mm3 06/02/17 18:11 Promyelocytes # 0.0 K/mm3 06/02/17 18:11 Blast Cells # 0.0 K/mm3 06/02/17 18:11 WBC Morphology Not Reportable 06/02/17 18:11 Hypersegmented Neuts Not Reportable 06/02/17 18:11 Hyposegmented Neuts Not Reportable 06/02/17 18:11 Hypogranular Neuts Not Reportable 06/02/17 18:11 Smudge Cells Not Reportable 06/02/17 18:11 Toxic Granulation Not Reportable 06/02/17 18:11 Toxic Vacuolation Not Reportable 06/02/17 18:11 Dohle Bodies Not Reportable 06/02/17 18:11 Pelger-Huet Anomaly Not Reportable 06/02/17 18:11 Nate Rods Not Reportable 06/02/17 18:11 Platelet Estimate Appears normal 06/02/17 18:11 Clumped Platelets Not Reportable 06/02/17 18:11 Plt Clumps, EDTA Not Reportable 06/02/17 18:11 Large Platelets Not Reportable 06/02/17 18:11 Giant Platelets Not Reportable 06/02/17 18:11 Platelet Satelliting Not Reportable 06/02/17 18:11 Plt Morphology Comment Not Reportable 06/02/17 18:11 RBC Morphology Not Reportable 06/02/17 18:11 Dimorphic RBCs Not Reportable 06/02/17 18:11 Polychromasia Not Reportable 06/02/17 18:11 Hypochromasia Not Reportable 06/02/17 18:11 Poikilocytosis Not Reportable 06/02/17 18:11 Anisocytosis Not Reportable 06/02/17 18:11 Microcytosis Not Reportable 06/02/17 18:11 Macrocytosis Not Reportable 06/02/17 18:11 Spherocytes Not Reportable 06/02/17 18:11 Pappenheimer Bodies Not Reportable 06/02/17 18:11 Sickle Cells Not Reportable 06/02/17 18:11 Target Cells Not Reportable 06/02/17 18:11 Tear Drop Cells Not Reportable 06/02/17 18:11 Ovalocytes Few 06/02/17 18:11 Helmet Cells Not Reportable 06/02/17 18:11 [place] [place] [place] Bodies Not Reportable 06/02/17 18:11 [place] Rings Not Reportable 06/02/17 18:11 Maira Cells Not Reportable 06/02/17 18:11 Bite Cells Not Reportable 06/02/17 18:11 Crenated Cell Not Reportable 06/02/17 18:11 Elliptocytes Not Reportable 06/02/17 18:11 Acanthocytes (Spur) Not Reportable 06/02/17 18:11 Rouleaux Not Reportable 06/02/17 18:11 Hemoglobin C Crystals Not Reportable 06/02/17 18:11 Schistocytes Not Reportable 06/02/17 18:11 Malaria parasites Not Reportable 06/02/17 18:11 Néstor Bodies Not Reportable 06/02/17 18:11 Hem Pathologist Commnt No 06/02/17 18:11 PT 16.8 Sec. (12.2-14.9) H 06/02/17 18:11 INR 1.30 (0.87-1.13) H 06/02/17 18:11 APTT 30.8 Sec. (24.2-36.6) 06/02/17 18:11 VBG pH 7.331 (7.320-7.420) 06/02/17 18:11 Sodium 140 mmol/L (137-145) 06/03/17 08:08 Potassium 4.2 mmol/L (3.6-5.0) 06/03/17 08:08 Chloride 106.6 mmol/L (98-107) 06/03/17 08:08 Carbon Dioxide 14 mmol/L (22-30) L 06/03/17 08:08 Anion Gap 24 mmol/L 06/03/17 08:08 BUN 28 mg/dL (7-17) H 06/03/17 08:08 Creatinine 1.8 mg/dL (0.7-1.2) H 06/03/17 08:08 Estimated GFR 27 ml/min 06/03/17 08:08 BUN/Creatinine Ratio 16 % 06/03/17 08:08 Glucose 134 mg/dL (65-100) H 06/03/17 08:08 Lactic Acid 5.00 mmol/L (0.7-2.0) H* 06/03/17 08:08 Calcium 7.8 mg/dL (8.4-10.2) L D 06/03/17 08:08 Total Bilirubin 0.50 mg/dL (0.1-1.2) 06/03/17 08:08 AST 44 units/L (5-40) H 06/03/17 08:08 ALT 23 units/L (7-56) 06/03/17 08:08 Alkaline Phosphatase 69 units/L (35-129) 06/03/17 08:08 Ammonia < 10.0 umol/L (25-60) L 06/02/17 18:11 Total Creatine Kinase 463 units/L (30-135) H 06/02/17 18:11 CK-MB (CK-2) 7.0 ng/mL (0.0-4.0) H 06/02/17 18:11 CK-MB (CK-2) Rel Index 1.5 (0-4) 06/02/17 18:11 Total Protein 5.4 g/dL (6.3-8.2) L 06/03/17 08:08 Albumin 2.6 g/dL (3.9-5) L 06/03/17 08:08 Albumin/Globulin Ratio 0.9 % 06/03/17 08:08 TSH 0.931 mlU/mL (0.270-4.200) 06/02/17 18:11 Free T4 1.30 ng/dL (0.76-1.46) 06/02/17 18:11 Urine Color Yellow (Yellow) 06/02/17 19:19 Urine Turbidity Clear (Clear) 06/02/17 19:19 Urine pH 5.0 (5.0-7.0) 06/02/17 19:19 Ur Specific [place] 1.014 (1.003-1.030) 06/02/17 19:19 Urine Protein 30 mg/dl mg/dL (Negative) 06/02/17 19:19 Urine Glucose (UA) Neg mg/dL (Negative) 06/02/17 19:19 Urine Ketones Neg mg/dL (Negative) 06/02/17 19:19 Urine Blood Lg (Negative) 06/02/17 19:19 Urine Nitrite Pos (Negative) 06/02/17 19:19 Urine Bilirubin Neg (Negative) 06/02/17 19:19 Urine Urobilinogen < 2.0 mg/dL (<2.0) 06/02/17 19:19 Ur Leukocyte Esterase Lg (Negative) 06/02/17 19:19 Urine WBC (Auto) > 182.0 /HPF (0.0-6.0) H 06/02/17 19:19 Urine RBC (Auto) 27.0 /HPF (0.0-6.0) 06/02/17 19:19 U Epithel Cells (Auto) 6.0 /HPF (0-13.0) 06/02/17 19:19 Urine Bacteria (Auto) 3+ /HPF (Negative) 06/02/17 19:19 Urine WBC Clumps 3+ /HPF 06/02/17 19:19 Calcium Oxalate Crystal Few 06/02/17 19:19 Urine Mucus 3+ /HPF 06/02/17 19:19 Urine Creatinine 114.2 mg/dL (0.1-20.0) H 06/02/17 22:03 Urine Sodium 19 mmol/L 06/02/17 22:03
[2017-06-03 09:50] LABS: Blastocytes % (Manual) 0 %; Eosinophils % (Manual) 0 % (0.0-4.3)
[2017-06-03 09:51] LABS: Basophils % (Manual) 0 % (0.0-1.8); Burr Cells Few; Diff Status Complete; Ovalocytes Few; Platelet Estimate Consistent w Auto
--- NOTE | 2017-06-03 09:53 | Consultation ---
History of Present Illness - Reason for Consult Consult date: 06/03/17 acute renal failure, metabolic acidosis - History of Present Illness The patient is a 87 YO WF with history significant for Atrial Fib, Debility( Fall Risk), Hypothyroidism, Alzheimer's Dementia presented to the ED for evaluation of confusion, lethargy and fall at home. Patient is unable to provide any history and information was obtained from her daughter at the bedside. As per daughter, pt has experienced confusion and fever over the past 4 days with worsening symptoms over the past 2 days. Pt was seen at [facility] on 06-01-17, diagnosed with UTI and was discharged with oral antibiotics. Family were unable to fill the medication because the pharmacy was closed over the holiday weekend. The symptoms gotten progressively worse overnight and the patient was found down on the floor by her daughter. Patient had one episode of loose stool at home. Her PO intake has been poor for about 4 days. EMS brought her to [facility] ER and she was found to have Urosepsis with Shock. Pt SBP was in the 70's and resuscitated with 5 liters of IV fluid. Labs significant for creatinine of 1.8, bicarb 14 and leukocytosis. Her baseline creatinine was around 0.5. No h/o reports of CP, N, V, Syncope, dysuria, hematuria or leg swelling. Past History Past Medical History: atrial fib, hypothyroidism, other (Dementia) Past Surgical History: No surgical history, Other (reviewed) Social history: , lives with family. denies: smoking, alcohol abuse, prescription drug abuse Family history: no significant family history, other (reviewed) Medications and Allergies Allergies Allergy/AdvReac Type Severity Reaction Status Date / Time No Known Allergies Allergy Unverified 06/02/17 17:54 Active Meds: Active Medications Acetaminophen (Tylenol) 650 mg PO Q4H PRN PRN Reason: Pain MILD(1-3)/Fever >100.5/JOHNSON Last Admin: 06/03/17 03:23 Dose: 650 mg Albuterol (Proventil) 2.5 mg IH Q4HRT PRN PRN Reason: Shortness Of Breath Ceftriaxone Sodium 2 gm/ (Sodium Chloride) 20 mls @ 20 mls/10 min IV Q24HR GOGO Norepinephrine (Levophed Drip 4 Mg/Ns 250 Ml) 4 mg in 250 mls @ 7.5 mls/hr IV TITR GOGO; 2 MCG/MIN PRN Reason: Protocol Last Titration: 06/03/17 07:15 Dose: 20 mcg/min, 75 mls/hr Ondansetron HCl (Zofran) 4 mg IV Q8H PRN PRN Reason: N/V unrelieved by Rj Vancomycin HCl (Vancomycin Pharmacy To Dose) 1 each IV PKCONSULT GOGO PRN Reason: Protocol Review of Systems ROS unobtainable: due to mental status Exam - Vital Signs Vital signs: Vital Signs Pulse Ox 91 06/02/17 17:48 - General Appearance General appearance: well-developed, well-nourished, appears stated age, other ( no distress) EENT: ATNC, PERRL, sclera incterus Neck: Present: neck supple, trachea midline Respiratory: Clear to Ascultation, Other (coarse breath sounds) Heart: S1S2, no murmurs Gastrointestinal: Present: normoactive bowel sounds. Absent: tenderness, distended Integumentary: no rash, warm and dry Neurologic: other (non-verbal, able to move all 4 extremities) Musculoskeletal: Present: other (trace pedal edema noted) Results - Lab Results 06/03/17 08:08 06/03/17 08:08 Most recent lab results Calcium 7.8 mg/dL (8.4-10.2) L D 06/03/17 08:08 Urine Creatinine 114.2 mg/dL (0.1-20.0) H 06/02/17 22:03 Urine Sodium 19 mmol/L 06/02/17 22:03 - Image Kidney/bladder ultrasound: pending Assessment and Plan 1. Acute kidney injury: STEPHANIE in the setting of volume depletion and septic shock. Patient is on Levophed. Received IV fluids bolus. Start on maintenance IV fluids. Renal US. 2. Lactic acidosis: Secondary to septic shock. Start on Bicarbonate drip. 3. Septic shock: Levophed. 4. UTI: [place]inkle sensitive E.Coli ([facility]). On Ceftriaxone. Overall prognosis is guarded. D/w her daughter at the bedside.
[2017-06-03] MEDS ORDERED: ROCEPHIN/NS 2 GM/100 ML 2 GM/100 ML BAG IV SCH (10:00)
[2017-06-03] MEDS: cefTRIAXone 2 GM in NACL 0.9% 20 ML IV SCH (12:15)
--- NOTE | 2017-06-03 12:37 | Consultation ---
History of Present Illness - Reason for Consult Consult date: 06/03/17 sepsis Requesting physician: PARUL BOBO - History of Present Illness 37 years old female with history of kidney stones, admitted on 06/02/17 due to 2 -day hours history of altered mental status, malaise, generalized weakness, presyncope. The patient's daughter, she went to [facility] 2 days before admission and was found to have a UTI. Was given Macrobid which she was taking. Despite taking antibiotics, she developed fever and worsening altered mental status and was found on the floor confused. Per daughter, denies any hematuria, N/V/D, abdominal pain. In the ED, patient initial temperature was 100.1, then went to 101.7. Initial white count was 8.2 with 47% bands. WBC went up to 39,000. Initial creatinine was 1.6. Lactic acid was 5.7. Urinalysis showed large leukocyte esterase and more than 182 white blood cells. CXR negative. CT head and cervical negative. Current Antimicrobials: Ceftriaxone Vancomycin Previous Antimicrobials: Microbiology: Blood cultures: 06/02 GNR 4 of 4 bottles Urine cultures: 06/02 GNR Past History Past Medical History: atrial fib, hypothyroidism, other (Dementia) Past Surgical History: No surgical history, Other (reviewed) Social history: , lives with family. denies: smoking, alcohol abuse, prescription drug abuse Family history: no significant family history, other (reviewed) Medications and Allergies Allergies Allergy/AdvReac Type Severity Reaction Status Date / Time No Known Allergies Allergy Unverified 06/02/17 17:54 Active Meds: Active Medications Acetaminophen (Tylenol) 650 mg PO Q4H PRN PRN Reason: Pain MILD(1-3)/Fever >100.5/JOHNSON Last Admin: 06/03/17 03:23 Dose: 650 mg Albuterol (Proventil) 2.5 mg IH Q4HRT PRN PRN Reason: Shortness Of Breath Ceftriaxone Sodium 2 gm/ (Sodium Chloride) 20 mls @ 20 mls/10 min IV Q24HR GOGO Norepinephrine (Levophed Drip 4 Mg/Ns 250 Ml) 4 mg in 250 mls @ 7.5 mls/hr IV TITR GOGO; 2 MCG/MIN PRN Reason: Protocol Last Titration: 06/03/17 07:15 Dose: 20 mcg/min, 75 mls/hr Sodium Bicarbonate 100 meq/ (Sterile Water) 1,100 mls @ 100 mls/hr IV DIRECT GOGO Ondansetron HCl (Zofran) 4 mg IV Q8H PRN PRN Reason: N/V unrelieved by Rj Vancomycin HCl (Vancomycin Pharmacy To Dose) 1 each IV PKCONSULT GOGO PRN Reason: Protocol Review of Systems ROS unobtainable: due to mental status Physical Examination - Physical Exam Narrative exam: General appearance: Alert in mild resp distress, conversant confused Eyes: anicteric sclerae, moist conjunctivae; no lid-lag; PERRLA HENT: Atraumatic; oropharynx clear Neck: Trachea midline; supple, no thyromegaly or lymphadenopathy Lungs: CTA CV: tachy Abdomen: Soft, +diffuse TTP Extremities: No peripheral edema or extremity lymphadenopathy Skin: Normal temperature, turgor and texture; no rash, ulcers or subcutaneous nodules Psych: alert confused. Neuro: alert Moving all extermities Lines: No CVL / PICC - Constitutional Vitals: Vital Signs Temp Pulse Resp BP Pulse Ox 99.7 F H 87 38 H 122/78 93 06/03/17 05:30 06/03/17 11:15 06/03/17 11:15 06/03/17 11:15 06/03/17 11:15 Temperature -Last 24 Hours Temperature 99.7 F Temperature 100 F Temperature 101.7 F Temperature 100.1 F Results - Labs CBC & Chem 7: 06/03/17 08:08 06/03/17 08:08 Labs: Abnormal lab results 06/02/17 06/02/17 06/02/17 Range/Units 18:11 18:11 18:11 WBC (4.5-11.0) K/mm3 Lymphocytes % (Manual) 5.0 L (13.4-35.0) % Seg Neutrophils # Man (1.8-7.7) K/mm3 Lymphocytes # (Manual) 0.4 L (1.2-5.4) K/mm3 PT 16.8 H (12.2-14.9) Sec. INR 1.30 H (0.87-1.13) Chloride 95.7 L (98-107) mmol/L Carbon Dioxide 19 L (22-30) mmol/L BUN 28 H (7-17) mg/dL Creatinine 1.6 H (0.7-1.2) mg/dL Glucose 113 H (65-100) mg/dL Lactic Acid (0.7-2.0) mmol/L Calcium (8.4-10.2) mg/dL Total Bilirubin 1.40 H (0.1-1.2) mg/dL AST (5-40) units/L Alkaline Phosphatase 159 H (35-129) units/L Ammonia (25-60) umol/L Total Creatine Kinase (30-135) units/L CK-MB (CK-2) (0.0-4.0) ng/mL Total Protein 6.1 L (6.3-8.2) g/dL Albumin 3.5 L (3.9-5) g/dL Urine WBC (Auto) (0.0-6.0) /HPF Urine Creatinine (0.1-20.0) mg/dL 06/02/17 06/02/17 06/02/17 Range/Units 18:11 18:11 18:11 WBC (4.5-11.0) K/mm3 Lymphocytes % (Manual) (13.4-35.0) % Seg Neutrophils # Man (1.8-7.7) K/mm3 Lymphocytes # (Manual) (1.2-5.4) K/mm3 PT (12.2-14.9) Sec. INR (0.87-1.13) Chloride (98-107) mmol/L Carbon Dioxide (22-30) mmol/L BUN (7-17) mg/dL Creatinine (0.7-1.2) mg/dL Glucose (65-100) mg/dL Lactic Acid 5.70 H* (0.7-2.0) mmol/L Calcium (8.4-10.2) mg/dL Total Bilirubin (0.1-1.2) mg/dL AST (5-40) units/L Alkaline Phosphatase (35-129) units/L Ammonia < 10.0 L (25-60) umol/L Total Creatine Kinase 463 H (30-135) units/L CK-MB (CK-2) 7.0 H (0.0-4.0) ng/mL Total Protein (6.3-8.2) g/dL Albumin (3.9-5) g/dL Urine WBC (Auto) (0.0-6.0) /HPF Urine Creatinine (0.1-20.0) mg/dL 06/02/17 06/02/17 06/02/17 Range/Units 19:19 20:44 22:03 WBC (4.5-11.0) K/mm3 Lymphocytes % (Manual) (13.4-35.0) % Seg Neutrophils # Man (1.8-7.7) K/mm3 Lymphocytes # (Manual) (1.2-5.4) K/mm3 PT (12.2-14.9) Sec. INR (0.87-1.13) Chloride (98-107) mmol/L Carbon Dioxide (22-30) mmol/L BUN (7-17) mg/dL Creatinine (0.7-1.2) mg/dL Glucose (65-100) mg/dL Lactic Acid 5.10 H* (0.7-2.0) mmol/L Calcium (8.4-10.2) mg/dL Total Bilirubin (0.1-1.2) mg/dL AST (5-40) units/L Alkaline Phosphatase (35-129) units/L Ammonia (25-60) umol/L Total Creatine Kinase (30-135) units/L CK-MB (CK-2) (0.0-4.0) ng/mL Total Protein (6.3-8.2) g/dL Albumin (3.9-5) g/dL Urine WBC (Auto) > 182.0 H (0.0-6.0) /HPF Urine Creatinine 114.2 H (0.1-20.0) mg/dL 06/03/17 06/03/17 06/03/17 Range/Units 01:06 03:34 08:08 WBC 39.2 H (4.5-11.0) K/mm3 Lymphocytes % (Manual) 1.5 L (13.4-35.0) % Seg Neutrophils # Man 27.4 H (1.8-7.7) K/mm3 Lymphocytes # (Manual) 0.6 L (1.2-5.4) K/mm3 PT (12.2-14.9) Sec. INR (0.87-1.13) Chloride (98-107) mmol/L Carbon Dioxide (22-30) mmol/L BUN (7-17) mg/dL Creatinine (0.7-1.2) mg/dL Glucose (65-100) mg/dL Lactic Acid 3.80 H* 3.80 H* (0.7-2.0) mmol/L Calcium (8.4-10.2) mg/dL Total Bilirubin (0.1-1.2) mg/dL AST (5-40) units/L Alkaline Phosphatase (35-129) units/L Ammonia (25-60) umol/L Total Creatine Kinase (30-135) units/L CK-MB (CK-2) (0.0-4.0) ng/mL Total Protein (6.3-8.2) g/dL Albumin (3.9-5) g/dL Urine WBC (Auto) (0.0-6.0) /HPF Urine Creatinine (0.1-20.0) mg/dL 06/03/17 06/03/17 Range/Units 08:08 08:08 WBC (4.5-11.0) K/mm3 Lymphocytes % (Manual) (13.4-35.0) % Seg Neutrophils # Man (1.8-7.7) K/mm3 Lymphocytes # (Manual) (1.2-5.4) K/mm3 PT (12.2-14.9) Sec. INR (0.87-1.13) Chloride (98-107) mmol/L Carbon Dioxide 14 L (22-30) mmol/L BUN 28 H (7-17) mg/dL Creatinine 1.8 H (0.7-1.2) mg/dL Glucose 134 H (65-100) mg/dL Lactic Acid 5.00 H* (0.7-2.0) mmol/L Calcium 7.8 L D (8.4-10.2) mg/dL Total Bilirubin (0.1-1.2) mg/dL AST 44 H (5-40) units/L Alkaline Phosphatase (35-129) units/L Ammonia (25-60) umol/L Total Creatine Kinase (30-135) units/L CK-MB (CK-2) (0.0-4.0) ng/mL Total Protein 5.4 L (6.3-8.2) g/dL Albumin 2.6 L (3.9-5) g/dL Urine WBC (Auto) (0.0-6.0) /HPF Urine Creatinine (0.1-20.0) mg/dL Assessment and Plan Assessment: 1) Severe Sepsis with septic shock: Present on admission, manifested by fever, tachycardia, hypotension, leukocytosis, bandemia, increased lactate. Etiology most likely GNR septicemia / UTI. 2) Complicated UTI: with history of kidney stones 3) GNR septicemia: from UTI 4) STEPHANIE Plan: -follow-up blood cultures, urine culture -obtain C-reactive protein (CRP) -continue ceftriaxone at 2 g IV q day -stop zosyn -repeat blood cx tomorrow -kidney US I will be off tomorrow, available on the phone and will be back rounding on Tuesday 06/05. [address] Bobo for your consultation, will follow up with you. Raegan Bradford MD Infectious Diseases Specialist [facility] ([facility]) M [phone] O [phone]
[2017-06-03] MEDS ORDERED: NORCO 5/325 ONE (14:18)
[2017-06-03] MEDS: NORCO 5/325 PO PRN ×2 (14:35→20:28)
--- NOTE | 2017-06-03 14:56 | Consultation ---
History of Present Illness Consult date: 06/03/17 Requesting physician: PARUL BOBO Reason for consult: other (Sepsis, Acute respiratory failure) History of present illness: 87 yo with dementia. Developed some dysuria and altered mental status. Dx with UTI at [facility] ED. Did not get Macrobid filled as instructed. Developed shaking chills, fevers, worsening mentation, hypotension necessitating CVL/pressors. Levophed now at 20mcg. She has received multiple fluid boluses already. She is more alert. She is not making much urine but no méndze in place. She is c/o worsening SOB. Active Medications Acetaminophen (Tylenol) 650 mg PO Q4H PRN PRN Reason: Pain MILD(1-3)/Fever >100.5/JOHNSON Last Admin: 06/03/17 03:23 Dose: 650 mg Acetaminophen/Hydrocodone Bitart ([place] 5/325) 1 each PO Q6H PRN PRN Reason: Pain, Moderate (4-6) Last Admin: 06/03/17 14:35 Dose: 1 each Albuterol/Ipratropium (Duoneb *Not For Prn Use*) 1 ampul IH Q6HRT GOGO Enoxaparin Sodium (Lovenox) 30 mg SUB-Q QDAY GOGO Ceftriaxone Sodium 2 gm/ (Sodium Chloride) 20 mls @ 20 mls/10 min IV Q24HR GOGO Last Admin: 06/03/17 12:15 Dose: 20 mls/10 min Norepinephrine (Levophed Drip 4 Mg/Ns 250 Ml) 4 mg in 250 mls @ 7.5 mls/hr IV TITR GOGO; 2 MCG/MIN PRN Reason: Protocol Last Admin: 06/03/17 14:30 Dose: 10 mcg/min, 37.5 mls/hr Sodium Bicarbonate 100 meq/ (Sterile Water) 1,100 mls @ 100 mls/hr IV DIRECT GOGO Ondansetron HCl (Zofran) 4 mg IV Q8H PRN PRN Reason: N/V unrelieved by Reglan Vancomycin HCl (Vancomycin Pharmacy To Dose) 1 each IV PKCONSULT GOGO PRN Reason: Protocol Past History Past Medical History: atrial fib, hypothyroidism, other (Dementia) Past Surgical History: No surgical history, Other (reviewed) Social history: , lives with family. denies: smoking, alcohol abuse, prescription drug abuse Family history: no significant family history, other (reviewed) Medications and Allergies Allergies Allergy/AdvReac Type Severity Reaction Status Date / Time No Known Allergies Allergy Unverified 06/02/17 17:54 Active Meds: Active Medications Acetaminophen (Tylenol) 650 mg PO Q4H PRN PRN Reason: Pain MILD(1-3)/Fever >100.5/JOHNSON Last Admin: 06/03/17 03:23 Dose: 650 mg Acetaminophen/Hydrocodone Bitart ([place] 5/325) 1 each PO Q6H PRN PRN Reason: Pain, Moderate (4-6) Last Admin: 06/03/17 14:35 Dose: 1 each Enoxaparin Sodium (Lovenox) 30 mg SUB-Q QDAY GOGO Ceftriaxone Sodium 2 gm/ (Sodium Chloride) 20 mls @ 20 mls/10 min IV Q24HR GOGO Last Admin: 06/03/17 12:15 Dose: 20 mls/10 min Norepinephrine (Levophed Drip 4 Mg/Ns 250 Ml) 4 mg in 250 mls @ 7.5 mls/hr IV TITR GOGO; 2 MCG/MIN PRN Reason: Protocol Last Admin: 06/03/17 14:30 Dose: 10 mcg/min, 37.5 mls/hr Sodium Bicarbonate 100 meq/ (Sterile Water) 1,100 mls @ 100 mls/hr IV DIRECT GOGO Ondansetron HCl (Zofran) 4 mg IV Q8H PRN PRN Reason: N/V unrelieved by Rj Vancomycin HCl (Vancomycin Pharmacy To Dose) 1 each IV PKCONSULT GOGO PRN Reason: Protocol Review of Systems ROS unobtainable: due to mental status (confused) Physical Examination Vital signs: Vital Signs Pulse Ox 91 06/02/17 17:48 General appearance: alert, other (critically ill on pressors) Eyes: non-icteric ENT: oropharynx moist Neck: supple Effort: mildly labored Ascultation: Bilateral: clear (anteriorly) Cardiovascular: regular rate and rhythm (no mrg) Gastrointestinal: normoactive bowel sounds, soft, non-tender, non-distended Integumentary: normal Extremities: no cyanosis, pink and warm, edema (1+ bilateral LE edema) Musculoskeletal: no deformities non-focal exam, pupils equal and round, CN II-XII normal mood appropriate, affect normal Results - Laboratory Findings CBC and BMP: 06/03/17 08:08 06/03/17 08:08 PT/INR, D-dimer PT 16.8 Sec. (12.2-14.9) H 06/02/17 18:11 INR 1.30 (0.87-1.13) H 06/02/17 18:11 Abnormal lab findings: Abnormal Labs 06/02/17 06/02/17 06/02/17 18:11 18:11 18:11 WBC Lymphocytes % (Manual) 5.0 L Seg Neutrophils # Man Lymphocytes # (Manual) 0.4 L PT 16.8 H INR 1.30 H Chloride 95.7 L Carbon Dioxide 19 L BUN 28 H Creatinine 1.6 H Glucose 113 H Lactic Acid Calcium Total Bilirubin 1.40 H AST Alkaline Phosphatase 159 H Ammonia Total Creatine Kinase CK-MB (CK-2) Total Protein 6.1 L Albumin 3.5 L Urine WBC (Auto) Urine Creatinine 06/02/17 06/02/17 06/02/17 18:11 18:11 18:11 WBC Lymphocytes % (Manual) Seg Neutrophils # Man Lymphocytes # (Manual) PT INR Chloride Carbon Dioxide BUN Creatinine Glucose Lactic Acid 5.70 H* Calcium Total Bilirubin AST Alkaline Phosphatase Ammonia < 10.0 L Total Creatine Kinase 463 H CK-MB (CK-2) 7.0 H Total Protein Albumin Urine WBC (Auto) Urine Creatinine 06/02/17 06/02/17 06/02/17 19:19 20:44 22:03 WBC Lymphocytes % (Manual) Seg Neutrophils # Man Lymphocytes # (Manual) PT INR Chloride Carbon Dioxide BUN Creatinine Glucose Lactic Acid 5.10 H* Calcium Total Bilirubin AST Alkaline Phosphatase Ammonia Total Creatine Kinase CK-MB (CK-2) Total Protein Albumin Urine WBC (Auto) > 182.0 H Urine Creatinine 114.2 H 06/03/17 06/03/17 06/03/17 01:06 03:34 08:08 WBC 39.2 H Lymphocytes % (Manual) 1.5 L Seg Neutrophils # Man 27.4 H Lymphocytes # (Manual) 0.6 L PT INR Chloride Carbon Dioxide BUN Creatinine Glucose Lactic Acid 3.80 H* 3.80 H* Calcium Total Bilirubin AST Alkaline Phosphatase Ammonia Total Creatine Kinase CK-MB (CK-2) Total Protein Albumin Urine WBC (Auto) Urine Creatinine 06/03/17 06/03/17 08:08 08:08 WBC Lymphocytes % (Manual) Seg Neutrophils # Man Lymphocytes # (Manual) PT INR Chloride Carbon Dioxide 14 L BUN 28 H Creatinine 1.8 H Glucose 134 H Lactic Acid 5.00 H* Calcium 7.8 L D Total Bilirubin AST 44 H Alkaline Phosphatase Ammonia Total Creatine Kinase CK-MB (CK-2) Total Protein 5.4 L Albumin 2.6 L Urine WBC (Auto) Urine Creatinine - Diagnostic Findings Chest x-ray: report reviewed, image reviewed Assessment and Plan Imp: 1. UTI 2. Severe sepsis with septic shock/bacteremia 2/2 above 3. Lactic acidosis 2/2 above 4. STEPHANIE 5. Acute respiratory failure, hypoxia 6. Dementia Rec: 1. Agree with Rocephin as urine culture at [facility] grew out kate-sens E.coli 2. On Bicarb drip per renal; consider reducing rate if any worsening SOB; will check ABG now 3. Add Duonebs 4. Wean Levophed to keep MAP > 65; repeat lactic acid 5. Renal US pending; has hx of kidney stones; would place méndez at this point to facilitate accurate I/O's 6. NPO; consider ST evaluation 7. Add Lovenox renal dose for DVT PPx Prognosis very guarded CCT 31 minutes Plan of care reviewed w/ family, they understand/agree
[2017-06-03] MEDS: LOVENOX SUB-Q SCH (15:25)
[2017-06-03] MEDS: SODIUM BICARBONATE 100 MEQ in STERILE WATER 1,000 ML IV SCH (15:30)
[2017-06-03] MEDS: DUONEB *Not for PRN Use IH SCH (16:15)
[2017-06-03 16:45] LABS: ISTAT Base Excess -16; ISTAT HCO3 11.3; ISTAT PCO2 25.8 (35-45); ISTAT PH 7.249 (7.35-7.45); ISTAT PO2 80 (80-105); ISTAT SO2 94; ISTAT TCO2 12
[2017-06-03] MEDS ORDERED: BENADRYL IV ONE (23:58)
[2017-06-04] MEDS: LEVOPHED DRIP 4 MG/NS 250 ML 4 MG/250 ML BAG IV SCH (00:08)
[2017-06-04] MEDS: SODIUM BICARBONATE 100 MEQ in STERILE WATER 1,000 ML IV SCH (02:42)
[2017-06-04] MEDS: DUONEB *Not for PRN Use IH SCH ×5 (03:56→20:22)
[2017-06-04 05:04] LABS: Hematocrit 33.2 % (30.3-42.9); Hemoglobin 11.1 gm/dl (10.1-14.3); Mean Corpuscular HGB Conc 34 % (30-34); Mean Corpuscular Hemoglobin 30 pg (28-32); Mean Corpuscular Volume 90 fl (79-97); Platelet Count 131 K/mm3 (140-440); Red Blood Count 3.69 M/mm3 (3.65-5.03)
[2017-06-04 05:08] LABS: White Blood Count 29.8 K/mm3 (4.5-11.0)
[2017-06-04 05:25] LABS: Albumin 2.7 g/dL (3.9-5); Albumin/Globulin Ratio 0.8 %; Bilirubin,Total 0.5 mg/dL (0.1-1.2); Calcium 8.3 mg/dL (8.4-10.2); Chloride 100.5 mmol/L (98-107); Magnesium 1.7 mg/dL (1.7-2.3); Phosphorous 3.8 mg/dL (2.5-4.5); Potassium 4.7 mmol/L (3.6-5.0)
[2017-06-04 07:07] LABS: Anisocytosis 1+; Basophils % (Manual) 0 % (0.0-1.8); Blastocytes % (Manual) 0 %; Burr Cells Rare; Eosinophils % (Manual) 0 % (0.0-4.3); Ovalocytes Rare; Polychromasia Rare
[2017-06-04 07:08] LABS: Diff Status Complete; Platelet Estimate Consistent w Auto
--- NOTE | 2017-06-04 07:41 | Progress Note ---
Assessment and Plan 1. Acute kidney injury: STEPHANIE in the setting of volume depletion and septic shock. Patient is on Levophed. Continue IV fluids. Renal US pending. 2. Lactic acidosis: Secondary to septic shock. Continue sodium bicarbonate drip. 3. Septic shock: On Levophed. 4. UTI: Hinkle sensitive E.Coli. On Ceftriaxone. Subjective Date of service: 06/04/17 Interval history: Patient was seen and examined at the bedside. Objective - Vital Signs Vital signs: Vital Signs - 12hr 06/03/17 06/03/17 06/03/17 19:45 20:00 20:15 Temperature 97.9 F Pulse Rate 70 78 80 Pulse Rate [ 80 From Monitor] Respiratory 25 H 28 H 36 H Rate Blood Pressure 105/55 106/57 116/56 O2 Sat by Pulse 94 95 94 Oximetry 06/03/17 06/03/17 06/03/17 20:28 20:30 20:45 Temperature Pulse Rate 78 79 Pulse Rate [ From Monitor] Respiratory 24 33 H 37 H Rate Blood Pressure 111/60 120/57 O2 Sat by Pulse 93 96 Oximetry 06/03/17 06/03/17 06/03/17 21:01 21:15 21:28 Temperature Pulse Rate 82 80 Pulse Rate [ From Monitor] Respiratory 33 H 28 H 36 H Rate Blood Pressure 104/49 98/56 O2 Sat by Pulse 95 94 Oximetry 06/03/17 06/03/17 06/03/17 21:30 21:45 22:00 Temperature Pulse Rate 73 75 72 Pulse Rate [ From Monitor] Respiratory 35 H 34 H 31 H Rate Blood Pressure 85/52 120/65 121/79 O2 Sat by Pulse 93 96 96 Oximetry 06/03/17 06/03/17 06/03/17 22:15 22:30 22:45 Temperature Pulse Rate 76 76 82 Pulse Rate [ From Monitor] Respiratory 37 H 36 H 28 H Rate Blood Pressure 127/72 124/65 130/69 O2 Sat by Pulse 95 95 97 Oximetry 06/03/17 06/03/17 06/03/17 23:00 23:15 23:30 Temperature Pulse Rate 72 81 81 Pulse Rate [ From Monitor] Respiratory 33 H 34 H 34 H Rate Blood Pressure 117/65 131/56 122/69 O2 Sat by Pulse 96 97 Oximetry 11/27/17 11/27/17 11/28/17 23:45 23:51 00:00 Temperature 98.2 F Pulse Rate 74 75 74 Pulse Rate [ 80 From Monitor] Respiratory 19 32 H 24 Rate Blood Pressure 119/71 114/62 130/67 O2 Sat by Pulse 96 96 99 Oximetry 06/04/17 06/04/17 06/04/17 00:15 00:30 00:45 Temperature Pulse Rate 72 71 68 Pulse Rate [ From Monitor] Respiratory 25 H 23 23 Rate Blood Pressure 130/64 99/54 97/57 O2 Sat by Pulse 95 93 92 Oximetry 06/04/17 06/04/17 06/04/17 01:00 01:15 01:30 Temperature Pulse Rate 71 67 69 Pulse Rate [ From Monitor] Respiratory 22 22 22 Rate Blood Pressure 98/62 103/59 105/63 O2 Sat by Pulse 92 94 93 Oximetry 06/04/17 06/04/17 06/04/17 01:45 02:00 02:15 Temperature Pulse Rate 63 63 70 Pulse Rate [ From Monitor] Respiratory 19 20 21 Rate Blood Pressure 97/67 107/64 110/63 O2 Sat by Pulse Oximetry 06/04/17 06/04/17 06/04/17 02:30 02:45 03:00 Temperature Pulse Rate 66 67 66 Pulse Rate [ From Monitor] Respiratory 20 25 H 22 Rate Blood Pressure 113/68 111/61 114/66 O2 Sat by Pulse 89 Oximetry 06/04/17 06/04/17 06/04/17 03:15 03:30 03:45 Temperature Pulse Rate 65 67 64 Pulse Rate [ From Monitor] Respiratory 20 21 22 Rate Blood Pressure 121/77 111/61 117/67 O2 Sat by Pulse 93 95 Oximetry 06/04/17 06/04/17 06/04/17 04:00 04:15 04:30 Temperature Pulse Rate 68 74 79 Pulse Rate [ From Monitor] Respiratory 23 30 H 28 H Rate Blood Pressure 113/66 141/66 133/66 O2 Sat by Pulse 95 91 95 Oximetry 06/04/17 06/04/17 06/04/17 04:45 05:00 05:15 Temperature Pulse Rate 90 76 82 Pulse Rate [ From Monitor] Respiratory 26 H 28 H 29 H Rate Blood Pressure 132/72 137/69 129/79 O2 Sat by Pulse 97 94 92 Oximetry 06/04/17 06/04/17 06/04/17 05:31 05:45 06:01 Temperature Pulse Rate 82 75 95 H Pulse Rate [ From Monitor] Respiratory 31 H 12 20 Rate Blood Pressure 136/77 136/77 136/77 O2 Sat by Pulse 95 89 93 Oximetry 06/04/17 06/04/17 06:15 06:30 Temperature Pulse Rate 82 76 Pulse Rate [ From Monitor] Respiratory 29 H 30 H Rate Blood Pressure 123/63 116/65 O2 Sat by Pulse 95 94 Oximetry - General Appearance General appearance: well-developed, well-nourished, appears stated age, other ( no distress) EENT: ATNC, PERRL Neck: supple Respiratory: Present: Clear to Ascultation Cardiology: regular, S1S2, no murmurs Gastrointestinal: normoactive bowel sounds, no tenderness, no distended Integumentary: no rash Neurologic: other (able to move extremities, answers yes or no) Musculoskeletal: other (no edema) Psychiatric: cooperative - Lab 06/04/17 04:15 06/04/17 04:15 Most recent lab results Calcium 8.3 mg/dL (8.4-10.2) L 06/04/17 04:15 Phosphorus 3.80 mg/dL (2.5-4.5) 06/04/17 04:15 Magnesium 1.70 mg/dL (1.7-2.3) 06/04/17 04:15 Urine Creatinine 114.2 mg/dL (0.1-20.0) H 06/02/17 22:03 Urine Sodium 19 mmol/L 06/02/17 22:03
[2017-06-04] MEDS: LOVENOX SUB-Q SCH (11:10)
[2017-06-04] MEDS: cefTRIAXone 2 GM in NACL 0.9% 20 ML IV SCH (11:15)
--- NOTE | 2017-06-04 14:10 | Progress Note ---
Assessment and Plan Imp: 1. UTI 2. Severe sepsis with septic shock/bacteremia 2/2 above 3. Lactic acidosis 2/2 above 4. STEPHANIE 5. Acute respiratory failure, hypoxia 6. Dementia Rec: 1. Agree with Rocephin as urine culture w/ kate-sens E.coli 2. On Bicarb drip per renal; consider reducing rate if any worsening SOB; she is compensating for her metabolic acidosis appropriately 3. Added Duonebs 4. Wean Levophed to keep MAP > 65; repeat lactic acid in AM 5. Renal US pending; has hx of kidney stones; méndez placed to facilitate accurate I/O's 6. NPO pending ST evaluation 7. Added Lovenox renal dose for DVT PPx 8. Remove CVL once off pressors 9. Awaiting ICU bed Prognosis very guarded but seems to be clinically improving CCT 31 minutes No family present today Subjective Date of service: 06/04/17 Principal diagnosis: Sepsis Interval history: Poor historian. States SOB better. More alert today. On 3L NC and 2 mcg of Levophed. Purulence in méndez bag. Active Medications Acetaminophen (Tylenol) 650 mg PO Q4H PRN PRN Reason: Pain MILD(1-3)/Fever >100.5/JOHNSON Last Admin: 06/03/17 03:23 Dose: 650 mg Acetaminophen/Hydrocodone Bitart ([place] 5/325) 1 each PO Q6H PRN PRN Reason: Pain, Moderate (4-6) Last Admin: 06/03/17 20:28 Dose: 1 each Albuterol/Ipratropium (Duoneb *Not For Prn Use*) 1 ampul IH Q6HRT [facility] Last Admin: 06/04/17 13:54 Dose: 1 ampul Enoxaparin Sodium (Lovenox) 30 mg SUB-Q QDAY [facility] Last Admin: 06/04/17 11:10 Dose: 30 mg Ceftriaxone Sodium 2 gm/ (Sodium Chloride) 20 mls @ 20 mls/10 min IV Q24HR [facility] Last Admin: 06/04/17 11:15 Dose: 20 mls/10 min Norepinephrine (Levophed Drip 4 Mg/Ns 250 Ml) 4 mg in 250 mls @ 7.5 mls/hr IV TITR GOGO; 2 MCG/MIN PRN Reason: Protocol Last Titration: 06/04/17 10:35 Dose: 2 mcg/min, 7.5 mls/hr Sodium Bicarbonate 100 meq/ (Sterile Water) 1,100 mls @ 100 mls/hr IV DIRECT GOGO Last Admin: 06/04/17 02:42 Dose: 100 mls/hr Ondansetron HCl (Zofran) 4 mg IV Q8H PRN PRN Reason: N/V unrelieved by Reglan Objective Vital Signs - 12hr 06/04/17 06/04/17 06/04/17 02:15 02:30 02:45 Temperature Pulse Rate 70 66 67 Pulse Rate [ Anterior Bilateral Throughout] Pulse Rate [ From Monitor] Pulse Rate [ Throughout] Respiratory 21 20 25 H Rate Respiratory Rate [Anterior Bilateral Throughout] Respiratory Rate [ Throughout] Blood Pressure 110/63 113/68 111/61 O2 Sat by Pulse 89 Oximetry 06/04/17 06/04/17 06/04/17 03:00 03:15 03:30 Temperature Pulse Rate 66 65 67 Pulse Rate [ Anterior Bilateral Throughout] Pulse Rate [ From Monitor] Pulse Rate [ Throughout] Respiratory 22 20 21 Rate Respiratory Rate [Anterior Bilateral Throughout] Respiratory Rate [ Throughout] Blood Pressure 114/66 121/77 111/61 O2 Sat by Pulse 93 Oximetry 06/04/17 06/04/17 06/04/17 03:45 04:00 04:15 Temperature Pulse Rate 64 68 74 Pulse Rate [ Anterior Bilateral Throughout] Pulse Rate [ 76 From Monitor] Pulse Rate [ Throughout] Respiratory 22 22 30 H Rate Respiratory Rate [Anterior Bilateral Throughout] Respiratory Rate [ Throughout] Blood Pressure 117/67 113/66 141/66 O2 Sat by Pulse 95 96 91 Oximetry 06/04/17 06/04/17 06/04/17 04:30 04:45 05:00 Temperature Pulse Rate 79 90 76 Pulse Rate [ Anterior Bilateral Throughout] Pulse Rate [ From Monitor] Pulse Rate [ Throughout] Respiratory 28 H 26 H 28 H Rate Respiratory Rate [Anterior Bilateral Throughout] Respiratory Rate [ Throughout] Blood Pressure 133/66 132/72 137/69 O2 Sat by Pulse 95 97 94 Oximetry 06/04/17 06/04/17 06/04/17 05:15 05:31 05:45 Temperature Pulse Rate 82 82 75 Pulse Rate [ Anterior Bilateral Throughout] Pulse Rate [ From Monitor] Pulse Rate [ Throughout] Respiratory 29 H 31 H 12 Rate Respiratory Rate [Anterior Bilateral Throughout] Respiratory Rate [ Throughout] Blood Pressure 129/79 136/77 136/77 O2 Sat by Pulse 92 95 89 Oximetry 06/04/17 06/04/17 06/04/17 06:01 06:15 06:30 Temperature Pulse Rate 95 H 82 76 Pulse Rate [ Anterior Bilateral Throughout] Pulse Rate [ From Monitor] Pulse Rate [ Throughout] Respiratory 20 29 H 30 H Rate Respiratory Rate [Anterior Bilateral Throughout] Respiratory Rate [ Throughout] Blood Pressure 136/77 123/63 116/65 O2 Sat by Pulse 93 95 94 Oximetry 06/04/17 06/04/17 06/04/17 06:45 07:00 07:15 Temperature Pulse Rate 73 72 68 Pulse Rate [ Anterior Bilateral Throughout] Pulse Rate [ From Monitor] Pulse Rate [ Throughout] Respiratory 25 H 26 H 22 Rate Respiratory Rate [Anterior Bilateral Throughout] Respiratory Rate [ Throughout] Blood Pressure 102/52 100/58 102/50 O2 Sat by Pulse 92 90 94 Oximetry 06/04/17 06/04/17 06/04/17 07:30 07:45 08:00 Temperature Pulse Rate 70 73 69 Pulse Rate [ Anterior Bilateral Throughout] Pulse Rate [ From Monitor] Pulse Rate [ Throughout] Respiratory 20 20 19 Rate Respiratory Rate [Anterior Bilateral Throughout] Respiratory Rate [ Throughout] Blood Pressure 95/62 103/61 104/63 O2 Sat by Pulse 95 97 97 Oximetry 06/04/17 06/04/17 06/04/17 08:15 08:30 08:45 Temperature 97.5 F L Pulse Rate 70 72 72 Pulse Rate [ Anterior Bilateral Throughout] Pulse Rate [ From Monitor] Pulse Rate [ Throughout] Respiratory 22 22 21 Rate Respiratory Rate [Anterior Bilateral Throughout] Respiratory Rate [ Throughout] Blood Pressure 115/73 106/64 110/62 O2 Sat by Pulse 96 98 99 Oximetry 06/04/17 06/04/17 06/04/17 09:00 09:15 09:30 Temperature Pulse Rate 76 81 78 Pulse Rate [ Anterior Bilateral Throughout] Pulse Rate [ From Monitor] Pulse Rate [ Throughout] Respiratory 21 21 26 H Rate Respiratory Rate [Anterior Bilateral Throughout] Respiratory Rate [ Throughout] Blood Pressure 128/73 128/73 129/84 O2 Sat by Pulse 96 92 92 Oximetry 06/04/17 06/04/17 06/04/17 09:45 10:01 10:15 Temperature Pulse Rate 76 77 85 Pulse Rate [ Anterior Bilateral Throughout] Pulse Rate [ From Monitor] Pulse Rate [ Throughout] Respiratory 29 H 16 29 H Rate Respiratory Rate [Anterior Bilateral Throughout] Respiratory Rate [ Throughout] Blood Pressure 141/75 135/73 151/107 O2 Sat by Pulse 92 91 92 Oximetry 06/04/17 06/04/17 06/04/17 10:31 10:45 11:01 Temperature Pulse Rate 84 77 78 Pulse Rate [ Anterior Bilateral Throughout] Pulse Rate [ From Monitor] Pulse Rate [ Throughout] Respiratory 18 30 H 30 H Rate Respiratory Rate [Anterior Bilateral Throughout] Respiratory Rate [ Throughout] Blood Pressure 144/78 124/71 124/59 O2 Sat by Pulse 93 94 94 Oximetry 06/04/17 06/04/17 06/04/17 11:15 11:30 11:45 Temperature Pulse Rate 75 80 78 Pulse Rate [ Anterior Bilateral Throughout] Pulse Rate [ From Monitor] Pulse Rate [ Throughout] Respiratory 31 H 32 H 26 H Rate Respiratory Rate [Anterior Bilateral Throughout] Respiratory Rate [ Throughout] Blood Pressure 129/66 125/71 131/76 O2 Sat by Pulse 95 93 89 Oximetry 06/04/17 13:55 Temperature Pulse Rate Pulse Rate [ 74 Anterior Bilateral Throughout] Pulse Rate [ From Monitor] Pulse Rate [ 84 Throughout] Respiratory Rate Respiratory 24 Rate [Anterior Bilateral Throughout] Respiratory 24 Rate [ Throughout] Blood Pressure O2 Sat by Pulse Oximetry Constitutional: alert, other (critically ill on pressors) Eyes: non-icteric ENT: oropharynx moist Neck: supple Effort: mildly labored Ascultation: Bilateral: clear (anteriorly) Cardiovascular: regular rate and rhythm (no mrg) Gastrointestinal: normoactive bowel sounds, soft, non-tender, non-distended Integumentary: normal Extremities: no cyanosis, pink and warm, edema (1+ bilateral LE edema) Neurologic: non-focal exam, pupils equal and round, CN II-XII normal Psychiatric: mood appropriate, affect normal CBC and BMP: 06/04/17 04:15 06/04/17 04:15 ABG, PT/INR, D-dimer: ABG POC ABG pH 7.249 (7.35-7.45) L 06/03/17 16:42 POC ABG pCO2 25.8 (35-45) L 06/03/17 16:42 POC ABG pO2 80 (80-105) 06/03/17 16:42 POC ABG HCO3 11.3 06/03/17 16:42 POC ABG Total CO2 12 06/03/17 16:42 POC ABG O2 Sat 94 06/03/17 16:42 PT/INR, D-dimer PT 16.8 Sec. (12.2-14.9) H 06/02/17 18:11 INR 1.30 (0.87-1.13) H 06/02/17 18:11 Abnormal lab findings: Abnormal Labs 06/02/17 06/02/17 06/02/17 18:11 18:11 18:11 WBC Plt Count Seg Neuts % (Manual) Lymphocytes % (Manual) 5.0 L Seg Neutrophils # Man Lymphocytes # (Manual) 0.4 L Monocytes # (Manual) PT 16.8 H INR 1.30 H POC ABG pH POC ABG pCO2 Chloride 95.7 L Carbon Dioxide 19 L BUN 28 H Creatinine 1.6 H Glucose 113 H Lactic Acid Calcium Total Bilirubin 1.40 H AST ALT Alkaline Phosphatase 159 H Ammonia Total Creatine Kinase CK-MB (CK-2) Total Protein 6.1 L Albumin 3.5 L Urine WBC (Auto) Urine Creatinine 06/02/17 06/02/17 06/02/17 18:11 18:11 18:11 WBC Plt Count Seg Neuts % (Manual) Lymphocytes % (Manual) Seg Neutrophils # Man Lymphocytes # (Manual) Monocytes # (Manual) PT INR POC ABG pH POC ABG pCO2 Chloride Carbon Dioxide BUN Creatinine Glucose Lactic Acid 5.70 H* Calcium Total Bilirubin AST ALT Alkaline Phosphatase Ammonia < 10.0 L Total Creatine Kinase 463 H CK-MB (CK-2) 7.0 H Total Protein Albumin Urine WBC (Auto) Urine Creatinine 06/02/17 06/02/17 06/02/17 19:19 20:44 22:03 WBC Plt Count Seg Neuts % (Manual) Lymphocytes % (Manual) Seg Neutrophils # Man Lymphocytes # (Manual) Monocytes # (Manual) PT INR POC ABG pH POC ABG pCO2 Chloride Carbon Dioxide BUN Creatinine Glucose Lactic Acid 5.10 H* Calcium Total Bilirubin AST ALT Alkaline Phosphatase Ammonia Total Creatine Kinase CK-MB (CK-2) Total Protein Albumin Urine WBC (Auto) > 182.0 H Urine Creatinine 114.2 H 06/03/17 06/03/17 06/03/17 01:06 03:34 08:08 WBC 39.2 H Plt Count Seg Neuts % (Manual) Lymphocytes % (Manual) 1.5 L Seg Neutrophils # Man 27.4 H Lymphocytes # (Manual) 0.6 L Monocytes # (Manual) PT INR POC ABG pH POC ABG pCO2 Chloride Carbon Dioxide BUN Creatinine Glucose Lactic Acid 3.80 H* 3.80 H* Calcium Total Bilirubin AST ALT Alkaline Phosphatase Ammonia Total Creatine Kinase CK-MB (CK-2) Total Protein Albumin Urine WBC (Auto) Urine Creatinine 06/03/17 06/03/17 06/03/17 08:08 08:08 16:42 WBC Plt Count Seg Neuts % (Manual) Lymphocytes % (Manual) Seg Neutrophils # Man Lymphocytes # (Manual) Monocytes # (Manual) PT INR POC ABG pH 7.249 L POC ABG pCO2 25.8 L Chloride Carbon Dioxide 14 L BUN 28 H Creatinine 1.8 H Glucose 134 H Lactic Acid 5.00 H* Calcium 7.8 L D Total Bilirubin AST 44 H ALT Alkaline Phosphatase Ammonia Total Creatine Kinase CK-MB (CK-2) Total Protein 5.4 L Albumin 2.6 L Urine WBC (Auto) Urine Creatinine 06/04/17 06/04/17 06/04/17 04:15 04:15 04:15 WBC 29.8 H Plt Count 131 L Seg Neuts % (Manual) 33.0 L Lymphocytes % (Manual) Seg Neutrophils # Man 9.8 H Lymphocytes # (Manual) Monocytes # (Manual) 1.8 H PT INR POC ABG pH POC ABG pCO2 Chloride Carbon Dioxide 18 L BUN 38 H Creatinine 2.0 H Glucose Lactic Acid 4.00 H* Calcium 8.3 L Total Bilirubin AST 516 H ALT 426 H Alkaline Phosphatase Ammonia Total Creatine Kinase 794 H CK-MB (CK-2) Total Protein 6.0 L Albumin 2.7 L Urine WBC (Auto) Urine Creatinine Chest x-ray: report reviewed, image reviewed
--- NOTE | 2017-06-04 15:02 | Progress Note ---
Assessment and Plan Assessment and plan: --Septic shock; sepsis secondary to UTI IV fluids, pressors, IV antibiotics, supportive care --Sepsis secondary to urinary tract infection; continue empiric antibiotics Follow cultures, ID evaluation --Significant metabolic encephalopathy; multifactorial, advanced age, septic shock, lactic and with embolic acidosis, and UTI, Closely monitor and supportive care --Lactic acidosis; and metabolic acidosis , dehydration supportive care --Acute kidney injury with metabolic acidosis; IV hydration, replacement therapy , closely monitor input output and renal function, nephrology evaluation, renal ultrasound as needed --Obesity; stable --Moderate to severe protein calorie malnutrition; nutrition supplements and supportive care --DVT prophylaxis; Lovenox SCDs --DO NOT RESUSCITATE status Consultants hospice inpatient versus at home Discussed in detail with the daughter at the bedside who agreed with the plan Closely monitor the patient and adjust management as needed Patient can be transferred to hospice when placement is set up Discussed DC planning with case management, patient's daughter and the nurse History Interval history: Since seen and examined medical records reviewed Remains on Levophed, titrating per protocol Patient looks chronically ill cachectic Vital signs reviewed Hospitalist Physical - Constitutional Vitals: Temp Pulse Resp BP Pulse Ox 97.5 F L 74 24 131/76 89 06/04/17 08:45 06/04/17 13:55 06/04/17 13:55 06/04/17 11:45 06/04/17 11:45 General appearance: Present: mild distress, obese - EENT Eyes: Present: PERRL, EOM intact - Neck Neck: Present: supple, normal ROM - Respiratory Respiratory effort: normal Respiratory: negative: rales, rhonchi, wheezing - Cardiovascular Rhythm: regular Heart Sounds: Present: S1 & S2 - Extremities Extremities: no ischemia, No edema - Abdominal General gastrointestinal: soft, non-tender, non-distended - Integumentary Integumentary: Present: clear, warm - Psychiatric Psychiatric: appropriate mood/affect, cooperative - Neurologic Neurologic: CNII-XII intact, moves all extremities Results - Labs CBC & Chem 7: 06/04/17 04:15 06/04/17 04:15 Labs: Laboratory Last Values WBC 29.8 K/mm3 (4.5-11.0) H 06/04/17 04:15 RBC 3.69 M/mm3 (3.65-5.03) 06/04/17 04:15 Hgb 11.1 gm/dl (10.1-14.3) 06/04/17 04:15 Hct 33.2 % (30.3-42.9) 06/04/17 04:15 MCV 90 fl (79-97) 06/04/17 04:15 MCH 30 pg (28-32) 06/04/17 04:15 MCHC 34 % (30-34) 06/04/17 04:15 RDW 15.0 % (13.2-15.2) 06/04/17 04:15 Plt Count 131 K/mm3 (140-440) L 06/04/17 04:15 Add Manual Diff Complete 06/04/17 04:15 Total Counted 100 06/04/17 04:15 Seg Neutrophils % Inseam Trimming Machine Operator 06/03/17 08:08 Seg Neuts % (Manual) 33.0 % (40.0-70.0) L 06/04/17 04:15 Band Neutrophils % 46.0 % 06/04/17 04:15 Lymphocytes % (Manual) 15.0 % (13.4-35.0) 06/04/17 04:15 Reactive Lymphs % (Man) 0 % 06/04/17 04:15 Monocytes % (Manual) 6.0 % (0.0-7.3) 06/04/17 04:15 Eosinophils % (Manual) 0 % (0.0-4.3) 06/04/17 04:15 Basophils % (Manual) 0 % (0.0-1.8) 06/04/17 04:15 Metamyelocytes % 0 % 06/04/17 04:15 Myelocytes % 0 % 06/04/17 04:15 Promyelocytes % 0 % 06/04/17 04:15 Blast Cells % 0 % 06/04/17 04:15 Nucleated RBC % Not Reportable 06/04/17 04:15 Seg Neutrophils # Man 9.8 K/mm3 (1.8-7.7) H 06/04/17 04:15 Band Neutrophils # 13.7 K/mm3 06/04/17 04:15 Lymphocytes # (Manual) 4.5 K/mm3 (1.2-5.4) 06/04/17 04:15 Abs React Lymphs (Man) 0.0 K/mm3 06/04/17 04:15 Monocytes # (Manual) 1.8 K/mm3 (0.0-0.8) H 06/04/17 04:15 Eosinophils # (Manual) 0.0 K/mm3 (0.0-0.4) 06/04/17 04:15 Basophils # (Manual) 0.0 K/mm3 (0.0-0.1) 06/04/17 04:15 Metamyelocytes # 0.0 K/mm3 06/04/17 04:15 Myelocytes # 0.0 K/mm3 06/04/17 04:15 Promyelocytes # 0.0 K/mm3 06/04/17 04:15 Blast Cells # 0.0 K/mm3 06/04/17 04:15 WBC Morphology Not Reportable 06/04/17 04:15 Hypersegmented Neuts Not Reportable 06/04/17 04:15 Hyposegmented Neuts Not Reportable 06/04/17 04:15 Hypogranular Neuts Not Reportable 06/04/17 04:15 Smudge Cells Not Reportable 06/04/17 04:15 Toxic Granulation Not Reportable 06/04/17 04:15 Toxic Vacuolation Not Reportable 06/04/17 04:15 Dohle Bodies Not Reportable 06/04/17 04:15 Pelger-Huet Anomaly Not Reportable 06/04/17 04:15 Nate Rods Not Reportable 06/04/17 04:15 Platelet Estimate Consistent w auto 06/04/17 04:15 Clumped Platelets Not Reportable 06/04/17 04:15 Plt Clumps, EDTA Not Reportable 06/04/17 04:15 Large Platelets Not Reportable 06/04/17 04:15 Giant Platelets Not Reportable 06/04/17 04:15 Platelet Satelliting Not Reportable 06/04/17 04:15 Plt Morphology Comment Not Reportable 06/04/17 04:15 RBC Morphology Not Reportable 06/04/17 04:15 Dimorphic RBCs Not Reportable 06/04/17 04:15 Polychromasia Rare 06/04/17 04:15 Hypochromasia Not Reportable 06/04/17 04:15 Poikilocytosis Not Reportable 06/04/17 04:15 Anisocytosis 1+ 06/04/17 04:15 Microcytosis Not Reportable 06/04/17 04:15 Macrocytosis Not Reportable 06/04/17 04:15 Spherocytes Not Reportable 06/04/17 04:15 Pappenheimer Bodies Not Reportable 06/04/17 04:15 Sickle Cells Not Reportable 06/04/17 04:15 Target Cells Not Reportable 06/04/17 04:15 Tear Drop Cells Not Reportable 06/04/17 04:15 Ovalocytes Rare 06/04/17 04:15 Helmet Cells Not Reportable 06/04/17 04:15 Vazquez-Carnegie Bodies Not Reportable 06/04/17 04:15 Felton Rings Not Reportable 06/04/17 04:15 Hoffman Cells Rare 06/04/17 04:15 Bite Cells Not Reportable 06/04/17 04:15 Crenated Cell Not Reportable 06/04/17 04:15 Elliptocytes Not Reportable 06/04/17 04:15 Acanthocytes (Spur) Not Reportable 06/04/17 04:15 Rouleaux Not Reportable 06/04/17 04:15 Hemoglobin C Crystals Not Reportable 06/04/17 04:15 Schistocytes Not Reportable 06/04/17 04:15 Malaria parasites Not Reportable 06/04/17 04:15 Néstor Bodies Not Reportable 06/04/17 04:15 Hem Pathologist Commnt No 06/04/17 04:15 PT 16.8 Sec. (12.2-14.9) H 06/02/17 18:11 INR 1.30 (0.87-1.13) H 06/02/17 18:11 APTT 30.8 Sec. (24.2-36.6) 06/02/17 18:11 POC ABG pH 7.249 (7.35-7.45) L 06/03/17 16:42 POC ABG pCO2 25.8 (35-45) L 06/03/17 16:42 POC ABG pO2 80 (80-105) 06/03/17 16:42 POC ABG HCO3 11.3 06/03/17 16:42 POC ABG Total CO2 12 06/03/17 16:42 POC ABG O2 Sat 94 06/03/17 16:42 POC ABG Base Excess -16 06/03/17 16:42 VBG pH 7.331 (7.320-7.420) 06/02/17 18:11 FiO2 32 % 06/03/17 16:42 Sodium 138 mmol/L (137-145) 06/04/17 04:15 Potassium 4.7 mmol/L (3.6-5.0) 06/04/17 04:15 Chloride 100.5 mmol/L (98-107) 06/04/17 04:15 Carbon Dioxide 18 mmol/L (22-30) L 06/04/17 04:15 Anion Gap 24 mmol/L 06/04/17 04:15 BUN 38 mg/dL (7-17) H 06/04/17 04:15 Creatinine 2.0 mg/dL (0.7-1.2) H 06/04/17 04:15 Estimated GFR 24 ml/min 06/04/17 04:15 BUN/Creatinine Ratio 19 % 06/04/17 04:15 Glucose 88 mg/dL (65-100) 06/04/17 04:15 Lactic Acid 4.00 mmol/L (0.7-2.0) H* 06/04/17 04:15 Calcium 8.3 mg/dL (8.4-10.2) L 06/04/17 04:15 Phosphorus 3.80 mg/dL (2.5-4.5) 06/04/17 04:15 Magnesium 1.70 mg/dL (1.7-2.3) 06/04/17 04:15 Total Bilirubin 0.50 mg/dL (0.1-1.2) 06/04/17 04:15 AST 516 units/L (5-40) H 06/04/17 04:15 ALT 426 units/L (7-56) H 06/04/17 04:15 Alkaline Phosphatase 89 units/L (35-129) 06/04/17 04:15 Ammonia < 10.0 umol/L (25-60) L 06/02/17 18:11 Total Creatine Kinase 794 units/L (30-135) H 06/04/17 04:15 CK-MB (CK-2) 7.0 ng/mL (0.0-4.0) H 06/02/17 18:11 CK-MB (CK-2) Rel Index 1.5 (0-4) 06/02/17 18:11 Total Protein 6.0 g/dL (6.3-8.2) L 06/04/17 04:15 Albumin 2.7 g/dL (3.9-5) L 06/04/17 04:15 Albumin/Globulin Ratio 0.8 % 06/04/17 04:15 TSH 0.931 mlU/mL (0.270-4.200) 06/02/17 18:11 Free T4 1.30 ng/dL (0.76-1.46) 06/02/17 18:11 Urine Color Yellow (Yellow) 06/02/17 19:19 Urine Turbidity Clear (Clear) 06/02/17 19:19 Urine pH 5.0 (5.0-7.0) 06/02/17 19:19 Ur Specific [place] 1.014 (1.003-1.030) 06/02/17 19:19 Urine Protein 30 mg/dl mg/dL (Negative) 06/02/17 19:19 Urine Glucose (UA) Neg mg/dL (Negative) 06/02/17 19:19 Urine Ketones Neg mg/dL (Negative) 06/02/17 19:19 Urine Blood Lg (Negative) 06/02/17 19:19 Urine Nitrite Pos (Negative) 06/02/17 19:19 Urine Bilirubin Neg (Negative) 06/02/17 19:19 Urine Urobilinogen < 2.0 mg/dL (<2.0) 06/02/17 19:19 Ur Leukocyte Esterase Lg (Negative) 06/02/17 19:19 Urine WBC (Auto) > 182.0 /HPF (0.0-6.0) H 06/02/17 19:19 Urine RBC (Auto) 27.0 /HPF (0.0-6.0) 06/02/17 19:19 U Epithel Cells (Auto) 6.0 /HPF (0-13.0) 06/02/17 19:19 Urine Bacteria (Auto) 3+ /HPF (Negative) 06/02/17 19:19 Urine WBC Clumps 3+ /HPF 06/02/17 19:19 Calcium Oxalate Crystal Few 06/02/17 19:19 Urine Mucus 3+ /HPF 06/02/17 19:19 Urine Creatinine 114.2 mg/dL (0.1-20.0) H 06/02/17 22:03 Urine Sodium 19 mmol/L 06/02/17 22:03
--- NOTE | 2017-06-04 16:45 | Discharge Summary ---
Providers - Providers Date of Admission: 06/02/17 21:29 Date of discharge: 06/04/17 Attending physician: PARUL BOBO 06/02/17 21:52 Consult to Physician [CONS] Routine Consulting Provider: MARCELLE WELLS Reason For Exam: CCU, sepsis, vasopressor Place consult to:: Dr. Wells Notified:: Answering Service Phone number called:: [phone] Was contact made?: No 06/03/17 09:11 Consult to Physician [CONS] Routine Consulting Provider: JOSE JEAN Reason For Exam: STEPHANIE,met acidosis Place consult to:: Dr Jean Notified:: yes 06/03/17 09:15 Consult to Physician [CONS] Routine Consulting Provider: ILA LUNA Reason For Exam: septic shock Place consult to:: Dr. Wilks Notified:: yes 06/03/17 14:41 Consult to Case Management [CONS] Routine Services Needed at Discharge: Other Notified:: n Additional Physician Instructions: consult for DC planning 06/04/17 14:09 Speech Therapy Evaluation and Treat [CONS] Routine Reason For Exam: Eval. Swallow and treat; pt. w/ Dementia, SOB Primary care physician: LAMINATION SPINNER Hospitalization Reason for admission: fever and altered level of consciousness Condition: Stable Pertinent studies: Chest x-ray chest x-ray CT cervical spine Head CT Pelvic x-ray renal ultrasound Abdominal and pelvis CT Consults; ID Nephrology Hospitalists Pulmonary critical Hospital course: 87-year-old female patient with significant past medical history of atrial fibrillation severe malnutrition and dementia hypothyroidism was admitted through emergency room with fevers and confusion, Patient was initially evaluated admitted to the hospital, to have severe sepsis Lactic acidosis and acute renal failure and septic shock Patient was symptomatically managed, severely ill with gram-negative sepsis In view of patient's advanced age, and multiorgan involvement patient's prognosis was very poor Family members decided to make the patient DO NOT RESUSCITATE and Requested for inpatient hospice Hospice has evaluated the patient, and patient is being transferred to inpatient hospice facility Patient was hemodynamically stable with the guarded and very poor prognosis All the family members are available of patient's severe illness Discharge diagnosis: --Gram-negative sepsis; on Rocephin, add meropenem, ID evaluated --Septic shock; sepsis secondary to UTI, --Sepsis secondary to urinary tract infection; --Significant metabolic encephalopathy; --Lactic acidosis; and metabolic acidosis --Acute kidney injury with metabolic acidosis; --Transaminitis; probably secondary to shock --Obesity; stable --Moderate to severe protein calorie malnutrition; --DVT prophylaxis; Lovenox SCDs --DO NOT RESUSCITATE status Patient's daughter requested hospice ,Hospice evaluated the patient, Patient and family agreed for inpatient hospice, Patient will be DC'd and transferred to inpatient hospice Disposition: DC-[facility] ([facility]) Time spent for discharge: 32 min Core Measure Documentation - Palliative Care Palliative Care/ Comfort Measures: Hospice Care - Core Measures Any of the following diagnoses?: none Exam - Constitutional Vitals: Temp Pulse Resp BP Pulse Ox 97.5 F L 84 31 H 114/69 82 L 06/04/17 08:45 06/04/17 15:30 06/04/17 15:30 06/04/17 15:30 06/04/17 15:30 General appearance: Present: no acute distress, well-nourished - EENT Eyes: Present: PERRL, EOM intact - Neck Neck: Present: supple, normal ROM - Respiratory Respiratory effort: normal Respiratory: bilateral: diminished, negative: rales, rhonchi, wheezing - Cardiovascular Rhythm: regular Heart Sounds: Present: S1 & S2 - Extremities Extremities: no ischemia, No edema Peripheral Pulses: within normal limits - Abdominal General gastrointestinal: Present: soft, non-tender - Integumentary Integumentary: Present: clear, warm - Musculoskeletal Musculoskeletal: strength equal bilaterally, generalized weakness - Psychiatric Psychiatric: appropriate mood/affect, cooperative - Neurologic Neurologic: CNII-XII intact, moves all extremities Plan Additional Instructions: Management per medical payment poster Follow up with: PRIMARY CARE, [Primary Care Provider] - 7 Days
--- NOTE | 2017-06-04 22:14 | Ultrasound Report ---
FINAL REPORT EXAM: US RENAL BILAT HISTORY: Acute renal failure. TECHNIQUE: Longitudinal and transverse grayscale sonographic images were performed Comparison: None FINDINGS: The right kidney measures 11.9 centimeters. There is normal cortical thickness and echogenicity. There is mild pelvocaliectasis of the right kidney. Level of transition is not identified. No mass lesion or stone. Left kidney measures 12.1 centimeters with normal cortical thickness and echogenicity. No hydronephrosis, mass lesion or stone. IMPRESSION: Mild right pelvocaliectasis. If there is clinical concern for distal obstruction, recommend physiologic exam or further workup with cross-sectional imaging. Normal sized kidneys and normal cortical thickness/echogenicity, especially for the patient's age. No stones or mass identified.
[2017-06-05] MEDS: NORCO 5/325 PO PRN (00:08)
[2017-06-05] MEDS: DUONEB *Not for PRN Use IH SCH ×3 (01:44→16:42)
[2017-06-05 05:29] LABS: Hematocrit 31.4 % (30.3-42.9); Hemoglobin 10.5 gm/dl (10.1-14.3); Mean Corpuscular HGB Conc 34 % (30-34); Mean Corpuscular Hemoglobin 30 pg (28-32); Mean Corpuscular Volume 90 fl (79-97); Platelet Count 114 K/mm3 (140-440); Red Cell Distribution Width 15.3 % (13.2-15.2)
[2017-06-05 05:39] LABS: White Blood Count 23.1 K/mm3 (4.5-11.0)
[2017-06-05 05:54] LABS: Albumin 2.5 g/dL (3.9-5); Albumin/Globulin Ratio 0.8 %; Bilirubin,Total 0.4 mg/dL (0.1-1.2); Calcium 8.2 mg/dL (8.4-10.2); Chloride 101.2 mmol/L (98-107); Potassium 3.9 mmol/L (3.6-5.0); Total Protein 5.5 g/dL (6.3-8.2)
[2017-06-05 06:25] LABS: Basophils % (Manual) 0 % (0.0-1.8); Blastocytes % (Manual) 0 %; Eosinophils % (Manual) 0 % (0.0-4.3)
[2017-06-05 06:26] LABS: Anisocytosis 1+; Diff Status Complete; Platelet Estimate Appears Decreased
--- NOTE | 2017-06-05 08:13 | Progress Note ---
Assessment and Plan Assessment and plan: --Gram-negative sepsis; continue Rocephin, add meropenem, ID following --Septic shock; sepsis secondary to UTI, off Levophed , blood pressures reasonable level IV fluids, IV antibiotics, supportive care --Sepsis secondary to urinary tract infection; continue Rocephin, add meropenem , repeat cultures --Significant metabolic encephalopathy; multifactorial, advanced age, septic shock, lactic and with embolic acidosis, and UTI, Closely monitor and supportive care --Lactic acidosis; and metabolic acidosis , dehydration supportive care --Acute kidney injury with metabolic acidosis; IV hydration, replacement therapy , closely monitor input output and renal function, nephrology evaluation, renal ultrasound as needed --Transaminitis; probably secondary to shock and underlying sepsis, LFTs trending down --Obesity; stable --Moderate to severe protein calorie malnutrition; nutrition supplements and supportive care --DVT prophylaxis; Lovenox SCDs --DO NOT RESUSCITATE status Hospice evaluated the patient, Patient and family agreed for inpatient hospice, to be discharged when bed is available in hospice Discussed in detail with the daughter at the bedside who agreed with the plan History Interval history: Patient seen and evaluated Hospitalist Physical - Constitutional Vitals: Temp Pulse Resp BP Pulse Ox 98.0 F 78 18 105/72 89 06/05/17 04:49 06/05/17 04:49 06/05/17 04:49 06/05/17 04:49 06/05/17 04:49 General appearance: Present: no acute distress, well-nourished Results - Labs CBC & Chem 7: 06/05/17 03:52 06/05/17 03:52 Labs: Laboratory Last Values WBC 23.1 K/mm3 (4.5-11.0) H 06/05/17 03:52 RBC 3.50 M/mm3 (3.65-5.03) L 06/05/17 03:52 Hgb 10.5 gm/dl (10.1-14.3) 06/05/17 03:52 Hct 31.4 % (30.3-42.9) 06/05/17 03:52 MCV 90 fl (79-97) 06/05/17 03:52 MCH 30 pg (28-32) 06/05/17 03:52 MCHC 34 % (30-34) 06/05/17 03:52 RDW 15.3 % (13.2-15.2) H 06/05/17 03:52 Plt Count 114 K/mm3 (140-440) L 06/05/17 03:52 Add Manual Diff Complete 06/05/17 03:52 Total Counted 100 06/05/17 03:52 Seg Neutrophils % Print Decorator 06/03/17 08:08 Seg Neuts % (Manual) 84.0 % (40.0-70.0) H 06/05/17 03:52 Band Neutrophils % 6.0 % 06/05/17 03:52 Lymphocytes % (Manual) 8.0 % (13.4-35.0) L 06/05/17 03:52 Reactive Lymphs % (Man) 0 % 06/05/17 03:52 Monocytes % (Manual) 2.0 % (0.0-7.3) 06/05/17 03:52 Eosinophils % (Manual) 0 % (0.0-4.3) 06/05/17 03:52 Basophils % (Manual) 0 % (0.0-1.8) 06/05/17 03:52 Metamyelocytes % 0 % 06/05/17 03:52 Myelocytes % 0 % 06/05/17 03:52 Promyelocytes % 0 % 06/05/17 03:52 Blast Cells % 0 % 06/05/17 03:52 Nucleated RBC % 1.0 % (0.0-0.9) H 06/05/17 03:52 Seg Neutrophils # Man 19.4 K/mm3 (1.8-7.7) H 06/05/17 03:52 Band Neutrophils # 1.4 K/mm3 06/05/17 03:52 Lymphocytes # (Manual) 1.8 K/mm3 (1.2-5.4) 06/05/17 03:52 Abs React Lymphs (Man) 0.0 K/mm3 06/05/17 03:52 Monocytes # (Manual) 0.5 K/mm3 (0.0-0.8) 06/05/17 03:52 Eosinophils # (Manual) 0.0 K/mm3 (0.0-0.4) 06/05/17 03:52 Basophils # (Manual) 0.0 K/mm3 (0.0-0.1) 06/05/17 03:52 Metamyelocytes # 0.0 K/mm3 06/05/17 03:52 Myelocytes # 0.0 K/mm3 06/05/17 03:52 Promyelocytes # 0.0 K/mm3 06/05/17 03:52 Blast Cells # 0.0 K/mm3 06/05/17 03:52 WBC Morphology Not Reportable 06/05/17 03:52 Hypersegmented Neuts Not Reportable 06/05/17 03:52 Hyposegmented Neuts Not Reportable 06/05/17 03:52 Hypogranular Neuts Not Reportable 06/05/17 03:52 Smudge Cells Not Reportable 06/05/17 03:52 Toxic Granulation Not Reportable 06/05/17 03:52 Toxic Vacuolation Not Reportable 06/05/17 03:52 Dohle Bodies Not Reportable 06/05/17 03:52 Pelger-Huet Anomaly Not Reportable 06/05/17 03:52 Nate Rods Not Reportable 06/05/17 03:52 Platelet Estimate Appears decreased 06/05/17 03:52 Clumped Platelets Not Reportable 06/05/17 03:52 Plt Clumps, EDTA Not Reportable 06/05/17 03:52 Large Platelets Not Reportable 06/05/17 03:52 Giant Platelets Not Reportable 06/05/17 03:52 Platelet Satelliting Not Reportable 06/05/17 03:52 Plt Morphology Comment Not Reportable 06/05/17 03:52 RBC Morphology Not Reportable 06/05/17 03:52 Dimorphic RBCs Not Reportable 06/05/17 03:52 Polychromasia Not Reportable 06/05/17 03:52 Hypochromasia Not Reportable 06/05/17 03:52 Poikilocytosis Not Reportable 06/05/17 03:52 Anisocytosis 1+ 06/05/17 03:52 Microcytosis Not Reportable 06/05/17 03:52 Macrocytosis Not Reportable 06/05/17 03:52 Spherocytes Not Reportable 06/05/17 03:52 Pappenheimer Bodies Not Reportable 06/05/17 03:52 Sickle Cells Not Reportable 06/05/17 03:52 Target Cells Not Reportable 06/05/17 03:52 Tear Drop Cells Not Reportable 06/05/17 03:52 Ovalocytes Not Reportable 06/05/17 03:52 Helmet Cells Not Reportable 06/05/17 03:52 [employer] Bodies Not Reportable 06/05/17 03:52 [place] Rings Not Reportable 06/05/17 03:52 Maira Cells Not Reportable 06/05/17 03:52 Bite Cells Not Reportable 06/05/17 03:52 Crenated Cell Not Reportable 06/05/17 03:52 Elliptocytes Not Reportable 06/05/17 03:52 Acanthocytes (Spur) Not Reportable 06/05/17 03:52 Rouleaux Not Reportable 06/05/17 03:52 Hemoglobin C Crystals Not Reportable 06/05/17 03:52 Schistocytes Not Reportable 06/05/17 03:52 Malaria parasites Not Reportable 06/05/17 03:52 Néstor Bodies Not Reportable 06/05/17 03:52 Hem Pathologist Commnt No 06/05/17 03:52 PT 16.8 Sec. (12.2-14.9) H 06/02/17 18:11 INR 1.30 (0.87-1.13) H 06/02/17 18:11 APTT 30.8 Sec. (24.2-36.6) 06/02/17 18:11 POC ABG pH 7.249 (7.35-7.45) L 06/03/17 16:42 POC ABG pCO2 25.8 (35-45) L 06/03/17 16:42 POC ABG pO2 80 (80-105) 06/03/17 16:42 POC ABG HCO3 11.3 06/03/17 16:42 POC ABG Total CO2 12 06/03/17 16:42 POC ABG O2 Sat 94 06/03/17 16:42 POC ABG Base Excess -16 06/03/17 16:42 VBG pH 7.331 (7.320-7.420) 06/02/17 18:11 FiO2 32 % 06/03/17 16:42 Sodium 139 mmol/L (137-145) 06/05/17 03:52 Potassium 3.9 mmol/L (3.6-5.0) 06/05/17 03:52 Chloride 101.2 mmol/L (98-107) 06/05/17 03:52 Carbon Dioxide 19 mmol/L (22-30) L 06/05/17 03:52 Anion Gap 23 mmol/L 06/05/17 03:52 BUN 42 mg/dL (7-17) H 06/05/17 03:52 Creatinine 1.6 mg/dL (0.7-1.2) H 06/05/17 03:52 Estimated GFR 30 ml/min 06/05/17 03:52 BUN/Creatinine Ratio 26 % 06/05/17 03:52 Glucose 88 mg/dL (65-100) 06/05/17 03:52 POC Glucose 90 (70-105) 06/04/17 22:52 Lactic Acid 2.40 mmol/L (0.7-2.0) H* 06/05/17 06:06 Calcium 8.2 mg/dL (8.4-10.2) L 06/05/17 03:52 Phosphorus 3.80 mg/dL (2.5-4.5) 06/04/17 04:15 Magnesium 1.70 mg/dL (1.7-2.3) 06/04/17 04:15 Total Bilirubin 0.40 mg/dL (0.1-1.2) 06/05/17 03:52 AST 446 units/L (5-40) H 06/05/17 03:52 ALT 529 units/L (7-56) H 06/05/17 03:52 Alkaline Phosphatase 80 units/L (35-129) 06/05/17 03:52 Ammonia < 10.0 umol/L (25-60) L 06/02/17 18:11 Total Creatine Kinase 794 units/L (30-135) H 06/04/17 04:15 CK-MB (CK-2) 7.0 ng/mL (0.0-4.0) H 06/02/17 18:11 CK-MB (CK-2) Rel Index 1.5 (0-4) 06/02/17 18:11 Total Protein 5.5 g/dL (6.3-8.2) L 06/05/17 03:52 Albumin 2.5 g/dL (3.9-5) L 06/05/17 03:52 Albumin/Globulin Ratio 0.8 % 06/05/17 03:52 TSH 0.931 mlU/mL (0.270-4.200) 06/02/17 18:11 Free T4 1.30 ng/dL (0.76-1.46) 06/02/17 18:11 Urine Color Yellow (Yellow) 06/02/17 19:19 Urine Turbidity Clear (Clear) 06/02/17 19:19 Urine pH 5.0 (5.0-7.0) 06/02/17 19:19 Ur Specific [place] 1.014 (1.003-1.030) 06/02/17 19:19 Urine Protein 30 mg/dl mg/dL (Negative) 06/02/17 19:19 Urine Glucose (UA) Neg mg/dL (Negative) 06/02/17 19:19 Urine Ketones Neg mg/dL (Negative) 06/02/17 19:19 Urine Blood Lg (Negative) 06/02/17 19:19 Urine Nitrite Pos (Negative) 06/02/17 19:19 Urine Bilirubin Neg (Negative) 06/02/17 19:19 Urine Urobilinogen < 2.0 mg/dL (<2.0) 06/02/17 19:19 Ur Leukocyte Esterase Lg (Negative) 06/02/17 19:19 Urine WBC (Auto) > 182.0 /HPF (0.0-6.0) H 06/02/17 19:19 Urine RBC (Auto) 27.0 /HPF (0.0-6.0) 06/02/17 19:19 U Epithel Cells (Auto) 6.0 /HPF (0-13.0) 06/02/17 19:19 Urine Bacteria (Auto) 3+ /HPF (Negative) 06/02/17 19:19 Urine WBC Clumps 3+ /HPF 06/02/17 19:19 Calcium Oxalate Crystal Few 06/02/17 19:19 Urine Mucus 3+ /HPF 06/02/17 19:19 Urine Creatinine 114.2 mg/dL (0.1-20.0) H 06/02/17 22:03 Urine Sodium 19 mmol/L 06/02/17 22:03
[2017-06-05 08:56] VITALS: BP 136/78
--- NOTE | 2017-06-05 09:35 | Progress Note ---
Assessment and Plan 1. Acute kidney injury: STEPHANIE in the setting of volume depletion and septic shock. Renal function is better. 2. Lactic acidosis: Secondary to septic shock. 3. Septic shock: Off Levophed. 4. UTI: Hinkle sensitive E.Coli. On Ceftriaxone. Subjective Date of service: 06/05/17 Principal diagnosis: Sepsis Interval history: Patient was seen and examined at the bedside. Doing ok. Objective - Vital Signs Vital signs: Vital Signs - 12hr 06/04/17 06/05/17 06/05/17 22:00 00:00 00:44 Temperature Pulse Rate 80 76 Pulse Rate [ Throughout] Respiratory 20 Rate Respiratory Rate [ Throughout] Blood Pressure 124/74 Blood Pressure [Right] O2 Sat by Pulse 95 Oximetry 06/05/17 06/05/17 06/05/17 01:44 01:53 04:49 Temperature 98.0 F Pulse Rate 78 Pulse Rate [ 71 73 Throughout] Respiratory 18 Rate Respiratory 18 18 Rate [ Throughout] Blood Pressure 105/72 Blood Pressure [Right] O2 Sat by Pulse 89 Oximetry 06/05/17 07:45 Temperature 98.1 F Pulse Rate 85 Pulse Rate [ Throughout] Respiratory 22 Rate Respiratory Rate [ Throughout] Blood Pressure Blood Pressure 136/78 [Right] O2 Sat by Pulse 93 Oximetry - General Appearance General appearance: well-developed, well-nourished, appears stated age, other ( no distress) EENT: ATNC, PERRL, hearing intact Neck: supple Respiratory: Present: Clear to Ascultation Cardiology: regular, S1S2, no murmurs Gastrointestinal: normoactive bowel sounds, no tenderness, no distended Integumentary: no rash, warm and dry Neurologic: no focal deficit Musculoskeletal: other (no edema) Psychiatric: mood/affect appropriate, cooperative - Lab 06/05/17 03:52 06/05/17 03:52 Most recent lab results Calcium 8.2 mg/dL (8.4-10.2) L 06/05/17 03:52 Phosphorus 3.80 mg/dL (2.5-4.5) 06/04/17 04:15 Magnesium 1.70 mg/dL (1.7-2.3) 06/04/17 04:15 Urine Creatinine 114.2 mg/dL (0.1-20.0) H 06/02/17 22:03 Urine Sodium 19 mmol/L 06/02/17 22:03
[2017-06-05] MEDS: cefTRIAXone 2 GM in NACL 0.9% 20 ML IV SCH (10:45)
[2017-06-05] MEDS: LOVENOX SUB-Q SCH (10:48)
--- NOTE | 2017-06-05 11:40 | Progress Note ---
Assessment and Plan Assessment: 1) Severe Sepsis with septic shock: some improvement, off pressors, leukocytosis better. Etiology from E coli septicemia / UTI. 2) Complicated E coli UTI: with history of kidney stones, renal US showed mild pelvocalictasis ? obstruction 3) E coli septicemia: from UTI - pansensitive 4) STEPHANIE Plan: -urology consult -CT stone protocol -repeat blood cultures -continue ceftriaxone at 2 g IV q day Thank you Dr Marte for your consultation, will follow up with you. Raegan Bradford MD Infectious Diseases Specialist [facility] [phone] Subjective Date of service: 06/05/17 Principal diagnosis: Sepsis Interval history: Feels better. No fever Current Antimicrobials: Meropenem 06/05 Previous Antimicrobials: Ceftriaxone Vancomycin Microbiology: Blood cultures: 06/02 E coli 4 of 4 bottles Urine cultures: 06/02 E coli pansensitive Objective - Exam Narrative Exam: General appearance: Alert in mild resp distress, conversant confused Eyes: anicteric sclerae, moist conjunctivae; no lid-lag; PERRLA HENT: Atraumatic; oropharynx clear Neck: Trachea midline; supple, no thyromegaly or lymphadenopathy Lungs: CTA CV: tachy Abdomen: Soft, +diffuse TTP Extremities: No peripheral edema or extremity lymphadenopathy Skin: Normal temperature, turgor and texture; no rash, ulcers or subcutaneous nodules Psych: alert confused. Neuro: alert Moving all extermities Lines: No CVL / PICC - Constitutional Vitals: Vital Signs Temp Pulse Resp BP Pulse Ox 98.1 F 85 22 136/78 93 06/05/17 07:45 06/05/17 07:45 06/05/17 07:45 06/05/17 07:45 06/05/17 07:45 Temperature -Last 24 Hours Temperature 98.1 F Temperature 98.0 F Temperature 98.7 F Temperature 97.6 F Temperature 97.6 F - Labs CBC & Chem 7: 06/05/17 03:52 06/05/17 03:52 Labs: Abnormal lab results 06/05/17 06/05/17 06/05/17 Range/Units 03:52 03:52 06:06 WBC 23.1 H (4.5-11.0) K/mm3 RBC 3.50 L (3.65-5.03) M/mm3 RDW 15.3 H (13.2-15.2) % Plt Count 114 L (140-440) K/mm3 Seg Neuts % (Manual) 84.0 H (40.0-70.0) % Lymphocytes % (Manual) 8.0 L (13.4-35.0) % Nucleated RBC % 1.0 H (0.0-0.9) % Seg Neutrophils # Man 19.4 H (1.8-7.7) K/mm3 Carbon Dioxide 19 L (22-30) mmol/L BUN 42 H (7-17) mg/dL Creatinine 1.6 H (0.7-1.2) mg/dL Lactic Acid 2.40 H* (0.7-2.0) mmol/L Calcium 8.2 L (8.4-10.2) mg/dL AST 446 H (5-40) units/L ALT 529 H (7-56) units/L Total Protein 5.5 L (6.3-8.2) g/dL Albumin 2.5 L (3.9-5) g/dL
[2017-06-05] MEDS ORDERED: MERREM IV SCH (12:00)
[2017-06-05] MEDS ORDERED: NACL 0.9% IV SCH (12:00)
[2017-06-05] MEDS ORDERED: MERREM/NS 500 MG/50 ML 500 MG/50 ML BAG IV SCH (12:00)
[2017-06-05] MEDS ORDERED: ROCEPHIN/NS 2 GM/100 ML 2 GM/100 ML BAG IV SCH (13:00)
[2017-06-05] MEDS ORDERED: cefTRIAXone 2 GM in NACL 0.9% 20 ML IV SCH (14:00)
--- NOTE | 2017-06-05 15:01 | Cat Scan Report ---
FINAL REPORT EXAM: CT ABDOMEN PELVIS WO CON HISTORY: CT stone protocol r/o hydro, obstructive stone TECHNIQUE: CT of the abdomen and pelvis was performed without intravenous contrast. Reconstructions were included in the coronal and sagittal planes. PRIORS: None. FINDINGS: Lower thorax: Small bilateral pleural effusions with adjacent atelectasis are seen. Mild multi chamber cardiac enlargement is seen. There is a small hiatal hernia. Liver: The liver is normal in attenuation. No intrahepatic biliary duct dilation. No focal hepatic lesions. Several simple hepatic cysts are seen. A calcified hepatic granuloma is seen. Gallbladder/ biliary system: No cholelithiasis. The common bile duct appears nondilated. Spleen: No splenic lesions are seen. Pancreas: No pancreatic lesions are seen. No pancreatic duct dilation. Kidneys: Several small nonobstructing right renal calculi are seen. The largest linear calcification is seen in the interpolar region measuring 7 millimeters. No left renal calculi. There is an 8 millimeter calculus at the right ureterovesical junction causing mild right hydroureteronephrosis. Adrenal glands: No adrenal masses. Vasculature: The abdominal aorta is nondilated. Atherosclerotic calcifications are seen in the abdominal aorta. Lymph nodes: No enlarged lymph nodes are seen in the abdomen or pelvis. Bowel, mesentery, peritoneum: No bowel obstruction. No free fluid or free air. The appendix is not definitively seen. Colonic diverticulosis is seen. No evidence of diverticulitis. Urinary bladder: The urinary bladder is collapsed with a Gallagher catheter. Pelvis: Post hysterectomy. Abdominal wall: There is mild body wall edema. A right femoral line is seen with the tip lying in the region of the right external iliac vein. There is a fat containing anterior abdominal wall hernia at the level of the umbilicus, slightly to the right of midline. Bones: Degenerative changes are seen in the spine. Old T12 compression fracture with prior vertebroplasty is seen. IMPRESSION: 1. 8 millimeter calculus at the right ureterovesical junction causing mild right hydroureteronephrosis. 2. Additional nonobstructing right renal calculi. 3. Multi chamber cardiac enlargement with small bilateral pleural effusions. 4. Small hiatal hernia. 5. Colonic diverticulosis without evidence of diverticulitis. 6. Simple hepatic cysts. 7. Fat containing anterior abdominal wall hernia.
== END 2017-06-05 18:57 | disposition hospice, inpatient (51) | DRG 871 ==
LOC: ED 16:43 → CC1 21:29 → 2B-ACE 06-04 14:42
PROVIDERS: ADMIT Internal Medicine; ATTEND Internal Medicine
PROC: 4A033R1 Measurement of Arterial Saturation, Peripheral, Percutaneous Approach (ICD-10-PCS; principal; 2017-06-03)
DX: A41.51 Sepsis due to Escherichia coli [E. coli] (principal); J96.01 Acute respiratory failure with hypoxia; R65.21 Severe sepsis with septic shock; E43 Unspecified severe protein-calorie malnutrition; G93.41 Metabolic encephalopathy; N39.0 Urinary tract infection, site not specified; N17.9 Acute kidney failure, unspecified; I48.91 Unspecified atrial fibrillation; E03.9 Hypothyroidism, unspecified; E66.9 Obesity, unspecified; Z66 Do not resuscitate; G30.9 Alzheimer's disease, unspecified; F02.80 Dementia in other diseases classified elsewhere, unspecified severity, without behavioral disturbance, psychotic disturbance, mood disturbance, and anxiety; E86.9 Volume depletion, unspecified; N20.0 Calculus of kidney; Z68.30 Body mass index [BMI] 30.0-30.9, adult; Z90.710 Acquired absence of both cervix and uterus; Z79.899 Other long term (current) drug therapy
CPT/HCPCS: 36415; 36600; 70450; 71010; 72125; 72170; 74176; 76770; 80053; 81001; 82140; 82550; 82553; 82570; 82803; 82805; 82962; 83735; 84100; 84300; 84439; 84443; 85007; 85025; 85610; 85730; 87040; 87076; 87086; 87186; 93005; 93010; 94640; 94760; 96361; 96365; 96367; G8996-GN; G8997-GN; J0696; J1200; J1650; J1956; J2185; J3370; J7030; J7040